=== PATIENT | female | born 1950 | race Caucasian/White ===

== ENCOUNTER 2021-08-22 21:43 | Outpatient (CLI) | payer MEDICARE | END 2021-08-22 21:44 | disposition critical access hospital (66) | LOC: EMS 21:43 | DX: R53.1 Weakness (principal); R47.81 Slurred speech; R51.9 Headache, unspecified; R29.810 Facial weakness | CPT/HCPCS: A0425; A0427 ==

== ENCOUNTER 2021-08-22 22:02 | Emergency (ER) | payer BC, MEDICARE, OTHER ==
[2021-08-22] MEDS ORDERED: SODIUM CHLORIDE 0.9% 1,000 ML IV STA (22:11)
[2021-08-22 22:26] LABS: BASOPHILS # (AUTO) 0.1 10^3/uL (0.0-0.1); BASOPHILS % (AUTO) 0.6 %; EOSINOPHILS # (AUTO) 0.2 10^3/uL (0.0-0.7); EOSINOPHILS % (AUTO) 2.2 %; HCT - HEMATOCRIT 38.6 % (37.0-47.0); HGB - HEMOGLOBIN 13.3 g/dL (12.0-16.0); LYMPHOCYTES # (AUTO) 3.8 10^3/uL (1.5-3.5); MEAN CORPUSCULAR HGB CONC 34.5 g/dL (32.0-36.0); MEAN CORPUSCULAR VOLUME 86.9 fL (81.0-99.0); MEAN PLATELET VOLUME 9.1 fL (7.9-10.8); MONOCYTES # (AUTO) 0.7 10^3/uL (0.0-1.0); MONOCYTES % (AUTO) 8.1 %; NEUTROPHILS # (AUTO) 4.1 10^3/uL (1.5-6.6); NEUTROPHILS % (AUTO) 45.8 %; PLT - PLATELET COUNT 292 10^3/uL (130-450); RED BLOOD COUNT 4.44 10^6/uL (4.20-5.40); RED CELL DISTRIBUTION WIDTH 12.2 % (12.0-15.0); WHITE BLOOD COUNT 8.9 x10^3/uL (4.8-10.8)
--- NOTE | 2021-08-22 22:35 | CT Report ---
PROCEDURE: HEAD WO INDICATIONS: L sided deficits TECHNIQUE: Noncontrast 4.5 mm thick angled axial sections acquired from the foramen magnum to the vertex. For r adiation dose reduction, the following was used: automated exposure control, adjustment of mA and/or kV according to patient size. COMPARISON: None. FINDINGS: Image quality: Excellent. CSF spaces: Basal cisterns are patent. No extra-axial fluid collections. Ventricles are normal in size and shape. Brain: Increased density noted in the M1 segment of the right middle cerebral artery. No midline chacorta ft. No intracranial masses or hemorrhage. Montes-white matter interface is normal. Skull and face: Calvarium and visualized facial bones are intact, without suspicious lesions. Sinuses: Visualized sinuses and mastoids are clear. IMPRESSION: 1. Increased density in the M1 segment of the right middle cerebral artery highly suspicious for thro mbus. 2. No intracranial hemorrhage. Findings discussed with Dr. Vicente on 08/22/2021 at 1029 hours. Reviewed by: Stacy Drake MD, PhD on 08/22/2021 10:34 PM PDT Approved by: Stacy Drake MD, PhD on 08/22/2021 10:34 PM PDT Station ID: [id number]
[2021-08-22 22:40] LABS: ALBUMIN 4.4 g/dL (3.2-5.5); ALBUMIN/GLOBULIN RATIO 1.6 (1.0-2.2); BILIRUBIN,TOTAL 0.7 mg/dL (0.2-1.0); CALCIUM 9.2 mg/dL (8.5-10.3); CREATININE 0.8 mg/dL (0.4-1.0); POTASSIUM 3.4 mmol/L (3.5-5.0); TOTAL PROTEIN 7.1 g/dL (6.7-8.2)
[2021-08-22] MEDS ORDERED: ALTEPLASE IV STA (23:04)
[2021-08-22] MEDS ORDERED: WATER FOR INJECTION STERILE IV STA (23:04)
[2021-08-22] MEDS ORDERED: ALTEPLASE 100 MG VIAL ONE (23:25)
[2021-08-22 23:38] LABS: INR 1.2 (0.8-1.2); PT - PROTHROMBIN TIME 12.9 secs (9.9-12.6)
[2021-08-22] MEDS ORDERED: IOVERSOL 320 100 ML VIAL IVP ONE (23:52)
[2021-08-23] MEDS ORDERED: IOVERSOL 320 100 ML VIAL IVP ONE (00:25)
--- NOTE | 2021-08-23 00:42 | CT Report ---
PROCEDURE: ANGIO HEAD W/WO INDICATIONS: L sided facial droop CONTRAST: IV CONTRAST: Optiray 320 ml: 80 PO CONTRAST: *NO PO CONTRAST TECHNIQUE: Precontrast 4.5 mm thick angled axial sections acquired from the foramen magnum to the vertex. Afte r the administration of intravenous contrast, 1 mm thick sections acquired through the [place] of [place] is. Postcontrast 4.5 mm thick sections then re-acquired from the foramen magnum to the vertex. 3-di mensional fwnumon-qlcknmzhn-xpxvoftagr (MIP) and/or volume rendering reformats were acquired of the c entral intracranial vasculature. For radiation dose reduction, the following was used: automated ex posure control, adjustment of mA and/or kV according to patient size. COMPARISON: CT head 08/22/2021. FINDINGS: Image quality: Excellent. Anterior circulation: Intracranial internal carotid arteries are normal in size and flow. The flow within the paired anterior cerebral arteries is normal and symmetric. Thrombus noted in the M1 segmen t of the right middle cerebral artery. Normal flow noted in the left middle cerebral artery. The ante rior communicating artery is seen. No aneurysms are seen. Posterior circulation: Visualized portions of the vertebral arteries demonstrate normal caliber, and join to form a normal appearing basilar artery. Flow within the posterior cerebral arteries is norm al and symmetric. No aneurysms are seen. On postcontrast enhancement of the dural sinuses. CSF spaces: Ventricles are normal in size and shape. Basal cisterns are patent. No extra-axial flu id collections. Brain: Loss of montes-white matter differentiation noted in the right insula and the right basal gangl ia. No midline shift. No intracranial bleeds or masses. Montes-white matter interface appears intact. Skull and face: Calvarium and facial bones appear intact, without suspicious lesions. Sinuses: Visualized sinuses and mastoids are clear. IMPRESSION: 1. Thrombus involving the M1 segment of the right middle cerebral artery. 2. Loss of montes-white matter dictation involving the right insula and the right basal ganglia compati ble with early acute infarct. 3. No intracranial hemorrhage. Reviewed by: Stacy Drake MD, PhD on 08/23/2021 12:43 AM PDT Approved by: Stacy Drake MD, PhD on 08/23/2021 12:43 AM PDT Station ID: [id number]
--- NOTE | 2021-08-23 00:46 | CT Report ---
PROCEDURE: ANGIO NECK W INDICATIONS: L sided facial droop, L neck pain CONTRAST: IV CONTRAST: Isovue 370 ml: 80 PO CONTRAST: *NO PO CONTRAST TECHNIQUE: After the administration of intravenous contrast, 1.5 mm axial sections acquired from the aortic arch to the [place] of Fu. Coronal 3-D maximum intensity projection (MIP) and/or volume rendering ref ormats were then performed. For radiation dose reduction, the following was used: automated exposur e control, adjustment of mA and/or kV according to patient size. COMPARISON: None. FINDINGS: Image quality: Excellent. Carotid system: The great vessels demonstrate a conventional anatomy as they arise from the aortic a rch. The origins of the common carotid arteries appear patent. The common carotid arteries demonstr ate normal calibers. The right common carotid artery follows a medial course projecting into the prev ertebral space. The bifurcation regions appear normal bilaterally. The internal carotid arteries de monstrate normal caliber and course. Posterior circulation: The origins of the vertebral arteries appear patent. The more superior porti ons of the vertebral arteries demonstrate normal course and caliber. They join to form a normal appe aring basilar artery. Soft tissues: Visualized neck soft tissues demonstrate no suspicious abnormalities. The thyroid is normal in size and there are no incidental findings. Bones: No suspicious bony lesions. Spine degenerative disc disease and facet arthropathy are noted. Visualized cervical spine appears normally aligned. IMPRESSION: No large vessel occlusion, vascular stenosis, vascular dissection or aneurysm. The estimate of stenosis included in the report of the imaging study was calculated using the NASCET method CLINICAL RECOMMENDATION STATEMENTS: In patients <35 years with an ITN detected on CT, MRI, or extrathyroidal ultrasound, the Committee re commends further evaluation with dedicated thyroid ultrasound if the nodule is "e1 cm and has no susp icious imaging features, and if the patient has normal life expectancy. In patients "e35 years with an ITN detected on CT, MRI, or extrathyroidal ultrasound, the Committee r ecommends further evaluation with dedicated thyroid ultrasound if the nodule is "e1.5 cm and has no s uspicious imaging features, and if the patient has normal life expectancy. (ACR, 2014) Reviewed by: Stacy Drake MD, PhD on 08/23/2021 12:47 AM PDT Approved by: Stacy Drake MD, PhD on 08/23/2021 12:47 AM PDT Station ID: [id number]
--- NOTE | 2021-08-23 01:10 | ED Physician Documentation ---
History of Present Illness - Stated complaint Stated Complaint: STROKE - Chief complaint Chief Complaint: Neuro - History obtained from History obtained from: Patient, Family, EMS - Additonal information Additional information: The patient is brought to the emergency department by EMS for chief complaint of strokelike symptoms. According to the , the patient been sitting watching TV when the got up to go the bathroom. He states that very shortly thereafter, the patient came to the doorway of the bathroom and he noted that she seemed to have drooping of her right face. The patient's left arm also seemed to be just hanging, and she was having difficulty with ambulation, secondary to left leg weakness. Per medics, the patient has showed no evidence of improvement in route. Patient states she does not feel any better. She complains of a frontal headache. No nausea or abdominal pain. No chest pain or shortness of breath. The patient has a history of atrial fibrillation which is failed 3 ablations. She states she thinks she is on an anticoagulant for this but cannot remember what. has brought the patient's meds and no anticoagulant is found to be among them. No other complaints at this time. Review of Systems Ten Systems: 10 systems reviewed and negative Constitutional: reports: Reviewed and negative Eyes: reports: Reviewed and negative Ears: reports: Reviewed and negative Nose: reports: Reviewed and negative Throat: reports: Reviewed and negative Cardiac: reports: Reviewed and negative Respiratory: reports: Reviewed and negative GI: reports: Reviewed and negative : reports: Reviewed and negative Skin: reports: Reviewed and negative Musculoskeletal: reports: Reviewed and negative Neurologic: reports: Focal weakness, Headache Psychiatric: reports: Reviewed and negative Endocrine: reports: Reviewed and negative Immunocompromised: reports: Reviewed and negative PD PAST MEDICAL HISTORY - Past Medical History Past Medical History: Yes Cardiovascular: Atrial fibrillation GI: GERD : Frequency - Past Surgical History Past Surgical History: Yes 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 Cardiovascular: Other - Present Medications Home Medications: Ambulatory Orders Medication Instructions Recorded Confirmed Ajanta 10 mg PO DAILY 08/22/21 Atorvastatin [Lipitor] 20 mg PO DAILY 08/22/21 08/22/21 Metoprolol Succinate [Kapspargo 100 mg PO DAILY 08/22/21 08/22/21 Sprinkle] Omeprazole [PriLOSEC] 20 mg PO DAILY 08/22/21 08/22/21 - Allergies Allergies/Adverse Reactions: Allergies Allergy/AdvReac Type Severity Reaction Status Date / Time No Known Drug Allergies Allergy Verified 08/22/21 22:56 - Social History Does the pt smoke?: No Smoking Status: Never smoker Does the pt drink ETOH?: No Does the pt have substance abuse?: No - Immunizations Immunizations are current?: Yes PD ED PE NORMAL - Vitals Vital signs reviewed: Yes - General General: No acute distress, Well developed/nourished, Other (The patient is awake and answers questions appropriately, Though responses are sometimes slowed.) - HEENT HEENT: Atraumatic, PERRL, EOMI, Moist mucous membranes - Neck Neck: Supple, no meningeal sign - Cardiac Cardiac: No murmur, Strong equal pulses, Other (Tachycardic, irregular rhythm) - Respiratory Respiratory: No respiratory distress, Clear bilaterally - Abdomen Abdomen: Soft, Non tender, Non distended - Derm Derm: Normal color, Warm and dry, No rash - Extremities Extremities: No deformity, No edema, No calf tenderness / cord - Neuro Neuro: Other (Unable to get an accurate NIH stroke scale score, secondary to inability of patient to complete certain aspects of the exam.) - Psych Psych: Normal mood, Normal affect PD ED PE EXPANDED - Free text exam Free text exam: Neurologic exam continued: Right-sided facial droopWith rightward gaze deviation. 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 No movement whatsoever of left arm. Left arm is insensate. Sensation intact in left leg to sharp and soft touch. The patient is able to weakly lift the left leg off of the bed and is able to perform a small amount of the imrj-ew-vaxo test, and the weakness prevents full movement. She is able to lift her leg off the bed for approximately 1 second, then the leg drifts down to the bed rapidly. She is able to perform ceoyce-bj-bqya well with the right hand. She can read the list of words and name objects in pictures and describe the action picture during the NIH stroke scale testing, but her ability to do these things is somewhat limited by her hemianopsia and resultant visual deficits. Her speech is slightly slurred but she is able to articulate fairly well nonetheless and there is no aphasia. Results - Vitals Vitals: Oxygen O2 Source Room air - EKG (time done) 2228 Rate: Rate (enter#) (139) Rhythm: Atrial fibrillation [place]: Normal Intervals: Normal MS QRS: Normal (Occasional PVCs) Ischemia: Non specific changes Compare to prior EKG: Old EKG unavailable Computer interpretation: Disagree with computer (ATrial fibrillation with RVR, not ST) - Labs Labs: Laboratory Tests 08/22/21 08/22/21 08/22/21 22:20 22:20 22:20 WBC 8.9 RBC 4.44 Hgb 13.3 Hct 38.6 MCV 86.9 MCH 30.0 MCHC 34.5 RDW 12.2 Plt Count 292 MPV 9.1 Neut # (Auto) 4.1 Lymph # (Auto) 3.8 H [place] # (Auto) 0.7 Eos # (Auto) 0.2 Baso # (Auto) 0.1 Absolute Nucleated RBC 0.00 Nucleated RBC % 0.0 PT 12.9 H INR 1.2 Sodium 135 Potassium 3.4 L Chloride 98 L Carbon Dioxide 24 Anion Gap 13.0 BUN 19 Creatinine 0.8 Estimated GFR (MDRD) 71 L Glucose 118 H Calcium 9.2 Total Bilirubin 0.7 AST 24 ALT 32 Alkaline Phosphatase 57 Total Protein 7.1 Albumin 4.4 Globulin 2.7 Albumin/Globulin Ratio 1.6 Lipase 34 Nasal Adenovirus (PCR) Nasal B. parapertussis DNA (PCR) Nasal Coronavir 229E PCR Nasal Coronavir HKU1 PCR Nasal Coronavir NL63 PCR Nasal Coronavir OC43 PCR Nasal Enterovir/Rhinovir PCR Nasal Influenza B PCR Nasal Influenza A PCR Nasal Parainfluen 1 PCR Nasal Parainfluen 2 PCR Nasal Parainfluen 3 PCR Nasal Parainfluen 4 PCR Nasal RSV (PCR) Nasal B.pertussis DNA PCR Nasal C.pneumoniae (PCR) Danyel Human Metapneumo PCR Nasal M.pneumoniae (PCR) Nasal SARS-CoV-2 (PCR) 08/22/21 22:34 WBC RBC Hgb Hct MCV MCH MCHC RDW Plt Count MPV Neut # (Auto) Lymph # (Auto) [place] # (Auto) Eos # (Auto) Baso # (Auto) Absolute Nucleated RBC Nucleated RBC % PT INR Sodium Potassium Chloride Carbon Dioxide Anion Gap BUN Creatinine Estimated GFR (MDRD) Glucose Calcium Total Bilirubin AST ALT Alkaline Phosphatase Total Protein Albumin Globulin Albumin/Globulin Ratio Lipase Nasal Adenovirus (PCR) NOT DETECTED Nasal B. parapertussis DNA (PCR) NOT DETECTED Nasal Coronavir 229E PCR NOT DETECTED Nasal Coronavir HKU1 PCR NOT DETECTED Nasal Coronavir NL63 PCR NOT DETECTED Nasal Coronavir OC43 PCR NOT DETECTED Nasal Enterovir/Rhinovir PCR NOT DETECTED Nasal Influenza B PCR NOT DETECTED Nasal Influenza A PCR NOT DETECTED Nasal Parainfluen 1 PCR NOT DETECTED Nasal Parainfluen 2 PCR NOT DETECTED Nasal Parainfluen 3 PCR NOT DETECTED Nasal Parainfluen 4 PCR NOT DETECTED Nasal RSV (PCR) NOT DETECTED Nasal B.pertussis DNA PCR NOT DETECTED Nasal C.pneumoniae (PCR) NOT DETECTED Danyel Human Metapneumo PCR NOT DETECTED Nasal M.pneumoniae (PCR) NOT DETECTED Nasal SARS-CoV-2 (PCR) NOT DETECTED - Rads (name of study) head CT Radiology: Final report received, EMP read indepedently, See rad report (MCA distribution stroke.) CTA head/neck Radiology: Final report received, EMP read indepedently, See rad report (Thrombus M1 segment of MCA (R) with associated acute infarct.) PD MEDICAL DECISION MAKING - ED course Complexity details: reviewed results, re-evaluated patient, considered differential, d/w patient, d/w family, d/w law firm consultant ED course: The patient was immediately sent for CT scan of the head on arrival, which showed likely right MCA distribution Acute CVA. I felt the patient would likely be a good candidate for tPA with the exception of the possibility of being on an anticoagulant for her chronic atrial fibrillation. The and brought the patient's meds in but there is no anticoagulant among them. He could not get onto her chart online. I had consulted telestroke physician Dr. Simmons, who did interview the patient and ultimately, it was determined that the patient is actually on aspirin. He felt the patient was a good candidate for TPA and so this was initiated. There were no complications during the administration of tPA. The pt's blood pressure was somewhat labile, but was low-normal enough times that I did not feel she should be started on antihypertensives. Additionally, despite the pt being in atrial fibrillation with RVR, I did not start the pt on Cardizem or metoprolol over blood pressure concerns, as well. The pt was accepted for transfer by Dr. Lombardi at [facility] (neurology/stroke), but I was asked to speak with the emergency physician Dr. Mayen, which I did. The pt was transferred by airlift. - Critical Care Time(min): 75 Comments: Critical care time was necessary, due to high probability of imminent decline and permanent, severe neurologic morbidity/time-sensitive neurologic emergency, secondary to acute severe CVA requiring thrombolytics. Time Includes: Direct patient care, Review records, Reassess patient, Document care, Coordinate care, Medical consult, Family consult for tx dec, See progress note Data interpretation: Labs (Also, CT/CTA), Pulse ox, Cardiac output, See progress note Departure - Departure Disposition: 02 Transfer Acute Care Hosp Discharge Date/Time: 08/23/21 01:54
[2021-08-23 01:21] LABS: B. PARAPERTUSSIS- RESP PCR PAN NOT DETECTED; B. PERTUSSIS- RESP PCR PANEL NOT DETECTED; C. PNEUMONIAE- RESP PCR PANEL NOT DETECTED; CORONAVIRUS 229E-RESP PCR NOT DETECTED; CORONAVIRUS HKU1-RESP PCR NOT DETECTED; CORONAVIRUS NL63-RESP PCR NOT DETECTED; CORONAVIRUS OC43-RESP PCR NOT DETECTED; HUMAN METAPNEUMOVIRUS NOT DETECTED; INFLUENZA A- RESP PCR PANEL NOT DETECTED; INFLUENZA B - RESP PCR PANEL NOT DETECTED; M. PNEUMONIAE- RESP PCR PANEL NOT DETECTED; PARAINFLUENZA VIRUS 1 NOT DETECTED; PARAINFLUENZA VIRUS 2 NOT DETECTED; PARAINFLUENZA VIRUS 3 NOT DETECTED; PARAINFLUENZA VIRUS 4 NOT DETECTED; RHINOVIRUS/ENTEROVIRUS NOT DETECTED; RSV- RESP PCR PANEL NOT DETECTED; SARS-CoV-2 -RESP PCR PANEL NOT DETECTED
[2021-08-23 01:44] VITALS: BP 129/83
== END 2021-08-23 01:54 | disposition short-term general hospital (02) ==
LOC: ED 22:02
DX: I63.411 Cerebral infarction due to embolism of right middle cerebral artery (principal); I48.91 Unspecified atrial fibrillation; Z79.01 Long term (current) use of anticoagulants; Z20.822 Contact with and (suspected) exposure to COVID-19
CPT/HCPCS: 36415; 37195; 70450; 70496; 70498; 80053; 83690; 85025; 85610; 87631; 99285; 99291; 99292; J2997; Q9967; 0202U

== ENCOUNTER 2022-02-12 14:16 | Outpatient (CLI) | payer MEDICARE | END 2022-02-12 14:17 | disposition critical access hospital (66) | LOC: EMS 14:16 | DX: R56.9 Unspecified convulsions (principal); R25.2 Cramp and spasm; I48.91 Unspecified atrial fibrillation | CPT/HCPCS: A0425; A0427 ==

== ENCOUNTER 2022-02-12 14:39 | Emergency (ER) | payer MEDICARE ==
--- NOTE | 2022-02-12 14:42 | ED Physician Documentation ---
PD HPI SEIZURE - Stated complaint Stated Complaint: SZ - History obtained from History obtained from: Patient - History of Present Illness Timing - onset: How many minutes ago (first seizure about 30 minutes [employer], onset while seated in chair. No fall/injury. lasted about a minute then stopped. EMS arrived with patient post ictal. She roused mostly alert and then had second seizure, self limited for about 1 minute. Given Versed by EMS, "just as the seizure was stopping".), Today Witnessed: Witnessed Number of seizures: Multiple (2), Recovered between seizure Description of seizure activity: Generalized Injury during seizure: None Associated symptoms: None. No: Headache, Chest pain, Dyspnea, Nausea / vomiting History of seizures: First seizure Contributing factors: Other. No: Changed meds, Head injury, Fever Treatment [employer]: Other (Versed after 2nd seizure stopped.) Similar symptoms before: Has not had sx before Recently seen: Not recently seen Review of Systems Unable to obtain: AMS, Other (info from ) Constitutional: denies: Fever, Chills Nose: denies: Congestion Cardiac: denies: Chest pain / pressure Respiratory: denies: Cough GI: denies: Abdominal Pain, Vomiting, Diarrhea Neurologic: reports: Seizure. denies: Headache Psychiatric: denies: Insomnia Immunocompromised: denies: Immunocompromised PD PAST MEDICAL HISTORY - Past Medical History Cardiovascular: Atrial fibrillation Respiratory: None Neuro: CVA, Other (no prior seizures. 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 Cardiovascular: Other - Present Medications Home Medications: Ambulatory Orders Medication Instructions Recorded Confirmed Ajanta 10 mg PO DAILY 08/22/21 Atorvastatin [Lipitor] 20 mg PO DAILY 08/22/21 08/22/21 Metoprolol Succinate [Kapspargo 100 mg PO DAILY 08/22/21 08/22/21 Sprinkle] Omeprazole [PriLOSEC] 20 mg PO DAILY 08/22/21 08/22/21 Levetiracetam [Keppra] 500 mg PO BID 30 Days #60 tablet 02/12/22 - Allergies Allergies/Adverse Reactions: Allergies Allergy/AdvReac Type Severity Reaction Status Date / Time No Known Drug Allergies Allergy Verified 02/12/22 15:00 - Living Situation Living Situation: reports: With spouse/s.o. Living Arrangement: reports: At home - Social History Does the pt smoke?: No Smoking Status: Never smoker Does the pt drink ETOH?: No Does the pt have substance abuse?: No - Family History Family history: reports: Non contributory - Immunizations Immunizations are current?: Yes PD ED PE NORMAL - Vitals Vital signs reviewed: Yes - General General: Other (arives somnolent, with some partial eye opening to sternal rub. Adequate apparent ventilation. Sats okay. ) - HEENT HEENT: Atraumatic, Moist mucous membranes, Pharynx benign - Neck Neck: Supple, no meningeal sign, No adenopathy, No bruit - Cardiac Cardiac: No murmur. No: RRR (irregular and tachycardic, ranging 125-145 c/w atrial fib with RVR. ) - Respiratory Respiratory: No respiratory distress, Clear bilaterally - Abdomen Abdomen: Normal bowel sounds, Soft, Non tender, Non distended - Derm Derm: Normal color, Warm and dry - Extremities Extremities: No tenderness to palpate, No edema, No calf tenderness / cord - Neuro Eye Opening: To Pain Motor: Localizes to Pain Verbal: Inappropriate (initially presents post-ictal with just some response to stimuli and incomprehensible speech. Rests.) GCS Score: 10 Results - Vitals Vitals: Vital Signs - 24 hr 02/12/22 02/12/22 02/12/22 14:57 15:28 15:39 Temperature 36.7 C Heart Rate 149 H 108 H 100 Respiratory 19 17 16 Rate Blood Pressure 145/103 H 121/101 H 123/93 H O2 Saturation 93 96 96 02/12/22 02/12/22 02/12/22 16:20 16:25 16:30 Temperature Heart Rate 114 H 113 H 100 Respiratory Rate Blood Pressure 120/83 H 111/75 118/78 O2 Saturation 02/12/22 02/12/22 02/12/22 16:35 16:50 17:05 Temperature Heart Rate 96 92 113 H Respiratory 19 Rate Blood Pressure 114/85 H 124/78 117/76 O2 Saturation 97 02/12/22 02/12/22 02/12/22 17:20 18:00 18:30 Temperature Heart Rate 104 H 96 89 Respiratory 16 16 Rate Blood Pressure 130/76 122/75 124/75 O2 Saturation 100 100 09/06/22 09/06/22 09/06/22 19:30 20:00 20:30 Temperature 36.7 C Heart Rate 93 100 99 Respiratory 16 12 17 Rate Blood Pressure 139/94 H 124/99 H 134/81 H O2 Saturation 94 93 94 Oxygen O2 Source Room air Oxygen Flow Rate 2 - Labs Labs: Laboratory Tests 02/12/22 02/12/22 02/12/22 13:34 14:45 14:45 WBC 14.3 H RBC 4.76 Hgb 14.3 Hct 44.2 MCV 92.9 MCH 30.0 MCHC 32.4 RDW 11.8 L Plt Count 347 MPV 9.6 Neut # (Auto) 5.2 Lymph # (Auto) 7.5 H [place] # (Auto) 1.1 H Eos # (Auto) 0.1 Baso # (Auto) 0.1 Absolute Nucleated RBC 0.03 Band Neuts % (Manual) Not Reportable Abnorm Lymph % (Manual) Not Reportable Nucleated RBC % 0.2 Neutrophils # (Manual) Not Reportable Lymphocytes # (Manual) Not Reportable Monocytes # (Manual) Not Reportable Eosinophils # (Manual) Not Reportable Basophils # (Manual) Not Reportable Differential Comment MANUAL=AUTO DIFF Manual Slide Review Indicated Platelet Estimate NORMAL (130-450,000) Platelet Morphology NORMAL APPEARANCE RBC Morph Micro Appear NORMAL APPEARANCE PT INR Sodium 138 Potassium 3.3 L Chloride 101 Carbon Dioxide 13 L Anion Gap 24.0 H BUN 18 Creatinine 0.8 Estimated GFR (MDRD) 70 L Glucose 146 H Lactic Acid 3.7 H* Calcium 9.4 Magnesium 2.6 Total Bilirubin 0.6 AST 36 ALT 30 Alkaline Phosphatase 51 Total Protein 7.6 Albumin 4.9 Globulin 2.7 Albumin/Globulin Ratio 1.8 Lipase 43 02/12/22 02/12/22 14:45 14:45 WBC RBC Hgb Hct MCV MCH MCHC RDW Plt Count MPV Neut # (Auto) Lymph # (Auto) [place] # (Auto) Eos # (Auto) Baso # (Auto) Absolute Nucleated RBC Band Neuts % (Manual) Abnorm Lymph % (Manual) Nucleated RBC % Neutrophils # (Manual) Lymphocytes # (Manual) Monocytes # (Manual) Eosinophils # (Manual) Basophils # (Manual) Differential Comment Manual Slide Review Platelet Estimate Platelet Morphology RBC Morph Micro Appear PT 14.2 H INR 1.3 H Sodium Potassium Chloride Carbon Dioxide Anion Gap BUN Creatinine Estimated GFR (MDRD) Glucose Lactic Acid > 10.0 H* Calcium Magnesium Total Bilirubin AST ALT Alkaline Phosphatase Total Protein Albumin Globulin Albumin/Globulin Ratio Lipase - Rads (name of study) head CT Radiology: Prelim report reviewed (prior CVA. No acute bleeding nor edema. ), See rad report PD MEDICAL DECISION MAKING - ED course Complexity details: reviewed results, re-evaluated patient (she slowly improves to baseline level of conversation/interaction. Having some increase of her chronic back pain post seizure. Given pain meds. Rapid atril fib slowed to about 100 with meds and time. ), considered differential (chronic atrial fib. New onset seizure. On DOAC. will get CT head to eval for bleed. Labs for metabolic assessment. ), d/w patient, d/w senior staff consultant (talked with her Neurologist Violeta Eaton, who suggested Rx Keppra 500 mg bid. Her office will contact the patient tomorrow about soon follow up. ) ED course: updated and patient on test results and then waited for Neuroloist to call back. Given Keppra and some pain meds for low bakc HR is minimally tachycardic and still fib. Patient should be able to be discharged with . Departure - Departure Disposition: 01 Home, Self Care Clinical Impression: Generalized seizure, Atrial fibrillation with rapid ventricular response, History of CVA with residual deficit, Anticoagulant long-term use, Chronic low back pain Condition: Stable Record reviewed to determine appropriate education?: Yes Instructions: ED Seizure New Onset Unk Cause Follow-Up: VIOLETA EATON MD [Physician No Access] - Prescriptions: Levetiracetam [Keppra] 500 mg PO BID 30 Days #60 tablet Comments: Dr. Eaton would like you to start on an antiseizure medicine called Keppra (levetiracetam). The starting dose is 500 mg twice a day. I sent a prescription for this to [facility] in [place] as I do not have [facility] in our database to be able to send it there. This will be an initial prescription however until you are able to see Dr. Eaton in the office and she can write for further prescriptions through your usual provider. Continue with your current usual medications. Use Tylenol every 4-6 hours regularly for the next few days to help with pains. Return if recurrent seizures in the short-term.
[2022-02-12] MEDS ORDERED: METOPROLOL 5 MG/5 ML VIAL IVP STA ×2 (14:55→16:07)
[2022-02-12 15:04] LABS: BASOPHILS # (AUTO) 0.1 10^3/uL (0.0-0.1); BASOPHILS % (AUTO) 0.5 %; EOSINOPHILS # (AUTO) 0.1 10^3/uL (0.0-0.7); EOSINOPHILS % (AUTO) 0.8 %; HCT - HEMATOCRIT 44.2 % (37.0-47.0); HGB - HEMOGLOBIN 14.3 g/dL (12.0-16.0); LYMPHOCYTES # (AUTO) 7.5 10^3/uL (1.5-3.5); LYMPHOCYTES % (AUTO) 52.9 %; MEAN CORPUSCULAR HGB CONC 32.4 g/dL (32.0-36.0); MEAN CORPUSCULAR VOLUME 92.9 fL (81.0-99.0); MEAN PLATELET VOLUME 9.6 fL (7.9-10.8); MONOCYTES # (AUTO) 1.1 10^3/uL (0.0-1.0); MONOCYTES % (AUTO) 7.7 %; NEUTROPHILS # (AUTO) 5.2 10^3/uL (1.5-6.6); NEUTROPHILS % (AUTO) 36.2 %; NRBC ABSOLUTE COUNT (AUTO) 0.03 x10^3/uL; NUCLEATED RED BLOOD CELLS AUTO 0.2 /100WBC; PLT - PLATELET COUNT 347 10^3/uL (130-450); RED BLOOD COUNT 4.76 10^6/uL (4.20-5.40); RED CELL DISTRIBUTION WIDTH 11.8 % (12.0-15.0); WHITE BLOOD COUNT 14.3 x10^3/uL (4.8-10.8)
[2022-02-12 15:08] LABS: INR 1.3 (0.8-1.2); PT - PROTHROMBIN TIME 14.2 secs (9.9-12.6)
[2022-02-12 15:23] LABS: SLIDE REVIEW? Indicated
--- NOTE | 2022-02-12 15:24 | CT Report ---
PROCEDURE: HEAD WO INDICATIONS: seizure new onset; recent CVA TECHNIQUE: Noncontrast 4.5 mm thick angled axial sections acquired from the foramen magnum to the vertex. For r adiation dose reduction, the following was used: automated exposure control, adjustment of mA and/or kV according to patient size. COMPARISON: CT head 08/23/2019 FINDINGS: Image quality: Excellent. The ventricular system and cortical sulci demonstrate atrophy, consistent for patient's stated age. There are areas of hypodensity in the periventricular and subcortical white matter. Encephalomalacia is present in the left right M1 distribution consistent with old ischemia. There is no acute intra o r extra-axial fluid collection. No acute hemorrhage, mass lesion or midline shift. Brainstem is unr emarkable. Globes are symmetrical. Sinuses are aerated. Osseous structures are intact. IMPRESSION: 1. No acute intracranial process. 2. Mild atrophy and chronic microvascular ischemic changes. Reviewed by: Ana Ferguson MD on 02/12/2022 3:23 PM PDT Approved by: Ana Ferguson MD on 02/12/2022 3:23 PM PDT Station ID: [id number]
[2022-02-12 15:46] LABS: RBC MORPHOLOGY (MULTIPLE) NORMAL APPEARANCE (NORMAL)
[2022-02-12 15:47] LABS: DIFFERENTIAL COMMENT MANUAL=AUTO DIFF; PLATELET ESTIMATE, MANUAL NORMAL (130-450,000) (NORMAL); PLATELET MORPHOLOGY NORMAL APPEARANCE (NORMAL)
[2022-02-12 15:58] LABS: ALBUMIN 4.9 g/dL (3.2-5.5); ALBUMIN/GLOBULIN RATIO 1.8 (1.0-2.2); BILIRUBIN,TOTAL 0.6 mg/dL (0.2-1.0); CALCIUM 9.4 mg/dL (8.5-10.3); CREATININE 0.8 mg/dL (0.4-1.0); MAGNESIUM 2.6 mg/dL (1.7-2.8); POTASSIUM 3.3 mmol/L (3.5-5.0); TOTAL PROTEIN 7.6 g/dL (6.7-8.2)
[2022-02-12] MEDS ORDERED: SODIUM CHLORIDE 0.9% 1,000 ML IV STA (16:06)
[2022-02-12] MEDS ORDERED: levETIRAcetam INJ 500 MG in SODIUM CHLORIDE 0.9% 100ML 100 ML IV STA (16:58)
[2022-02-12] MEDS ORDERED: HYDROmorphone 0.5 MG/0.5 ML SYRINGE IVP STA (17:11)
[2022-02-12] MEDS ORDERED: KETOROLAC 15 MG/ML VIAL IVP STA (17:11)
[2022-02-12] MEDS ORDERED: HYDROmorphone 1 MG/ML CARPUJECT IVP STA (20:50)
[2022-02-12] MEDS ORDERED: oxyCODONE 5 MG TABLET PO STA (22:21)
--- NOTE | 2022-02-12 22:29 | XRAY Report ---
PROCEDURE: Hip w/Pelvis 2-3V LT INDICATIONS: fall, hip pain TECHNIQUE: AP pelvis with lateral view of the left hip. COMPARISON: None. FINDINGS: Bones: No displaced fractures or dislocations. Pelvic ring appears intact. No suspicious bony lesi ons. Soft tissues: The visualized bowel gas pattern is normal. No suspicious soft tissue calcifications. IMPRESSION: 1. No displaced fracture or dislocation. 2. If clinical concern persists, further evaluation may be obtained with CT. Reviewed by: Stephon Harvey MD on 02/12/2022 10:27 PM PDT Approved by: Stephon Harvey MD on 02/12/2022 10:27 PM PDT Station ID: [id number]
--- NOTE | 2022-02-12 22:33 | XRAY Report ---
PROCEDURE: Lumbar Spine 2 View INDICATIONS: fall, back pain TECHNIQUE: 2 views of the lumbar spine were acquired. COMPARISON: None. FINDINGS: Bones: 5 pga-bhp-ljwadqw vertebrae are present. There is mild retrolisthesis at L2-L3 measuring yuliya roximately 0.4 cm. Minimal retrolisthesis also demonstrated at L3-L4. There is a mild superior endpla te compression deformity of the T12 vertebral body of indeterminate acuity. There is associated mild loss of height of approximately 20-25%. No retropulsed fragments in the spinal canal. There is multilevel disc space narrowing including mild to moderate narrowing at L2-L3. Facet arthrop athy is also demonstrated in the lower lumbar spine including mild to moderate degeneration at L5-S1. Soft tissues: Overlying bowel gas pattern is normal. No suspicious soft tissue calcifications. IMPRESSION: 1. Mild superior endplate compression deformity of the T12 vertebral body of indeterminate acuity. 2. Mild retrolisthesis at L2-L3 and L3-L4. 3. Multilevel degenerative disc disease and facet arthropathy in the lower lumbar spine. Reviewed by: Stephon Harvey MD on 02/12/2022 10:32 PM PDT Approved by: Stephon Harvey MD on 02/12/2022 10:32 PM PDT Station ID: [id number]
[2022-02-12] MEDS ORDERED: ONDANSETRON 4 MG/2 ML VIAL IVP STA (22:57)
[2022-02-12] MEDS ORDERED: SODIUM CHLORIDE 0.9% 500 ML IV STA (23:04)
[2022-02-12 23:37] VITALS: BP 123/78
--- NOTE | 2022-02-12 23:43 | ED Physician Documentation ---
ED Addendum - Addendum Addendum: After Dr. Del Valle had left at the end of his shift, the patient and her family member were complaining of back and left hip pain. I went and evaluated the patient. She did have mild low lumbar tenderness, mainly paraspinal spasm. Full range of motion of the left hip, internal and external rotation without significant pain. X-rays were ordered. No acute findings on lumbar spine x- ray, does have degeneration, T12 compression fracture, does not appear new. She is not tender at this site. Pain well controlled here. She did have emesis after pain medication and this resolved with Zofran. Likely spasm from the seizure. We will prescribe pain medication for home as well. Patient and family are both requesting to go home at this time and they feel comfortable going home. Patient and family counseled regarding signs and symptoms for which I believe and urgent re-evaluation would be necessary. Patient with good understanding of and agreement to plan and is comfortable going home at this time This document was made in part using voice recognition software. While efforts are made to proofread this document, sound alike and grammatical errors may occur. Departure - Departure Disposition: Home, Self Care Clinical Impression: Generalized seizure, Atrial fibrillation with rapid ventricular response, History of CVA with residual deficit, Anticoagulant long-term use, Back spasm Chronic low back pain Qualifiers: Back pain laterality: bilateral Sciatica presence: without sciatica Qualified Code(s): M54.50 - Low back pain, unspecified; G89.29 - Other chronic pain Condition: Stable Instructions: ED Seizure New Onset Unk Cause Follow-Up: BERNA EATON MD [Physician No Access] - Prescriptions: Levetiracetam [Keppra] 500 mg PO BID 30 Days #60 tablet Oxycodone HCl [Roxicodone] 2.5 - 5 mg PO Q6H PRN #10 tablet PRN Reason: Pain Ondansetron Odt [Zofran] 4 mg TL Q6H PRN #10 tablet PRN Reason: Nausea / Vomiting Comments: Dr. Eaton would like you to start on an antiseizure medicine called Keppra (levetiracetam). The starting dose is 500 mg twice a day. I sent a prescription for this to [facility] in [place] as I do not have [facility] in our database to be able to send it there. This will be an initial prescription however until you are able to see Dr. Eaton in the office and she can write for further prescriptions through your usual provider. Continue with your current usual medications. Use Tylenol every 4-6 hours regularly for the next few days to help with pains. Return if recurrent seizures in the short-term. I am prescribing a short course of narcotic pain medication for you. These are potentially dangerous and addictive medications that should be used carefully. These medications may constipate you. Take an stem-kcc-plgbyfy stool softener (docusate) twice daily with plenty of water while taking these medications. If you go 24 hours without a bowel movement, take tcdz-zea-rzgveob miralax, per package instructions. Do not drink or drive while taking these medications. If you received narcotic or sedating medications while in the emergency department, do not drive for 24 hours. Store this medication in a safe, secure place and out of reach of children. It is a violation of federal law to give or sell this medication to another person or to use in a manner other than prescribed. The ED will not refill narcotic prescriptions, including prescriptions lost or stolen. To dispose of unwanted medications: 1. [facility] at [address] in [place] has a medication drop box. They accept prescription medications (in pill form) Friday through Friday 9:00 a.m. to 5:00 p.m. 2. The [facility] [employer] accepts prescription medications (in pill form only) for disposal year round. Call for more information. 3. Contact the [facility] for the next [facility] sponsored prescription drug collection event. , [phone], or [phone];
== END 2022-02-12 23:52 | disposition home or self-care (01) ==
LOC: EDUNIT# → ED 14:39
DX: G40.89 Other seizures (principal); M54.50 Low back pain, unspecified; G89.29 Other chronic pain; I48.91 Unspecified atrial fibrillation; I48.20 Chronic atrial fibrillation, unspecified; Z79.01 Long term (current) use of anticoagulants
CPT/HCPCS: 36415; 70450; 72100; 73502; 80053; 83605; 83690; 83735; 85025; 85610; 93005; 96365; 96375; 96376; 99283; 99285; A9270; J1170

== ENCOUNTER 2022-07-18 15:17 | Emergency (ER) | payer MEDICARE ==
--- NOTE | 2022-07-18 15:55 | ED Physician Documentation ---
History of Present Illness - Stated complaint Stated Complaint: BLACK STOOL - Chief complaint Chief Complaint: Abd Pain - History obtained from History obtained from: Patient - History of Present Illness Timing: Yesterday Pain level max: 0 Pain level now: 0 - Additonal information Additional information: 72-year-old female presents to the emergency department with 2 days of diarrhea. She states that she drank Pepto-Bismol last night. She states that this morning she had dark black stools. No lightheadedness, chest pain, shortness of breath. She is on Eliquis. She had a normal colonoscopy around reportedly 1 year ago. No fevers. No chills. Mild nausea. No vomiting. She states that she has had intermittent diarrhea for several years, no significant change. Review of Systems Constitutional: denies: Fever, Chills Throat: denies: Sore throat Cardiac: denies: Chest pain / pressure, Palpitations Respiratory: denies: Dyspnea, Cough, Wheezing GI: reports: Diarrhea. denies: Vomiting : denies: Dysuria, Frequency, Hesitancy Skin: denies: Rash Musculoskeletal: denies: Neck pain, Back pain Neurologic: denies: Headache PD PAST MEDICAL HISTORY - Past Medical History Cardiovascular: Atrial fibrillation Respiratory: None Neuro: CVA, Other (no prior seizures. 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 Cardiovascular: Other - Present Medications Home Medications: Ambulatory Orders Medication Instructions Recorded Confirmed Ajanta 10 mg PO DAILY 08/22/21 Atorvastatin [Lipitor] 20 mg PO DAILY 08/22/21 08/22/21 Metoprolol Succinate [Kapspargo 100 mg PO DAILY 08/22/21 08/22/21 Sprinkle] Omeprazole [PriLOSEC] 20 mg PO DAILY 08/22/21 08/22/21 Levetiracetam [Keppra] 500 mg PO BID 30 Days #60 tablet 02/12/22 Ondansetron Odt [Zofran] 4 mg TL Q6H PRN #10 tablet 02/12/22 Oxycodone HCl [Roxicodone] 2.5 - 5 mg PO Q6H PRN #10 tablet 02/12/22 - Allergies Allergies/Adverse Reactions: Allergies Allergy/AdvReac Type Severity Reaction Status Date / Time No Known Drug Allergies Allergy Verified 02/12/22 15:00 - Social History Does the pt smoke?: No Smoking Status: Never smoker Does the pt drink ETOH?: No Does the pt have substance abuse?: No - Immunizations Immunizations are current?: Yes PD ED PE NORMAL - Vitals Vital signs reviewed: Yes - General General: Alert and oriented X 3, No acute distress - HEENT HEENT: PERRL, Moist mucous membranes - Neck Neck: Supple, no meningeal sign - Cardiac Cardiac: RRR, Strong equal pulses - Respiratory Respiratory: No respiratory distress, Clear bilaterally - Abdomen Abdomen: Soft, Non tender, Non distended - Rectal Rectal: Other (Brown stool in the rectal vault. Hemoccult sent) - Derm Derm: Warm and dry - Extremities Extremities: No edema - Neuro Neuro: Alert and oriented X 3 - Psych Psych: Normal mood, Normal affect Results - Vitals Vitals: Vital Signs - 24 hr 07/18/22 15:50 Temperature 36.9 C Heart Rate 93 Respiratory 16 Rate Blood Pressure 135/100 H O2 Saturation 98 Oxygen O2 Source Room air - Labs Labs: Microbiology 07/18/22 16:15 Occult Blood - Final Stool Laboratory Tests 07/18/22 07/18/22 16:00 16:00 WBC 8.3 RBC 4.94 Hgb 14.4 Hct 43.2 MCV 87.4 MCH 29.1 MCHC 33.3 RDW 11.5 L Plt Count 308 MPV 9.2 Neut # (Auto) 4.4 Lymph # (Auto) 2.9 [place] # (Auto) 0.7 Eos # (Auto) 0.2 Baso # (Auto) 0.1 Absolute Nucleated RBC 0.00 Nucleated RBC % 0.0 Sodium 135 Potassium 4.2 Chloride 99 L Carbon Dioxide 25 Anion Gap 11.0 BUN 19 Creatinine 0.5 Estimated GFR (MDRD) 121 Glucose 105 H Calcium 9.7 Total Bilirubin 0.8 AST 31 ALT 48 Alkaline Phosphatase 68 Total Protein 7.2 Albumin 4.2 Globulin 3.0 Albumin/Globulin Ratio 1.4 Lipase 45 PD Medical Decision Making - ED course Complexity details: reviewed results, re-evaluated patient, considered differential, d/w patient ED course: A CBC and a abdominal panel were ordered and are without acute abnormality. No significant anemia. Fecal occult blood testing is negative. Likely that the dark stool is secondary to the Pepto-Bismol. Abdomen is soft, nontender nondistended on serial exam. We will have her follow-up with her doctor for further care. We will continue supportive care. Patient counseled regarding signs and symptoms for which I believe and urgent re-evaluation would be necessary. Patient with good understanding of and agreement to plan and is comfortable going home at this time This document was made in part using voice recognition software. While efforts are made to proofread this document, sound alike and grammatical errors may occur. Departure - Departure Disposition: 01 Home, Self Care Clinical Impression: Diarrhea Qualifiers: Diarrhea type: unspecified type Qualified Code(s): R19.7 - Diarrhea, unspecified Condition: Good Instructions: ED Diet Vomiting Diarrhea Follow-Up: CHERELLE ALEXANDRA I [Primary Care Provider] - Within 1 week Comments: Your blood counts and lab work are normal today. Your testing for blood in your stool is also negative today. This is likely secondary to the Pepto-Bismol. Please follow-up with your doctor as needed for further care. Please return if you worsen.
[2022-07-18 16:04] LABS: BASOPHILS # (AUTO) 0.1 10^3/uL (0.0-0.1); BASOPHILS % (AUTO) 0.7 %; EOSINOPHILS # (AUTO) 0.2 10^3/uL (0.0-0.7); EOSINOPHILS % (AUTO) 2.2 %; HCT - HEMATOCRIT 43.2 % (37.0-47.0); HGB - HEMOGLOBIN 14.4 g/dL (12.0-16.0); LYMPHOCYTES # (AUTO) 2.9 10^3/uL (1.5-3.5); LYMPHOCYTES % (AUTO) 34.8 %; MEAN CORPUSCULAR HEMOGLOBIN 29.1 pg (27.0-31.0); MEAN CORPUSCULAR HGB CONC 33.3 g/dL (32.0-36.0); MEAN CORPUSCULAR VOLUME 87.4 fL (81.0-99.0); MEAN PLATELET VOLUME 9.2 fL (7.9-10.8); MONOCYTES # (AUTO) 0.7 10^3/uL (0.0-1.0); MONOCYTES % (AUTO) 8.4 %; NEUTROPHILS # (AUTO) 4.4 10^3/uL (1.5-6.6); NEUTROPHILS % (AUTO) 53.7 %; PLT - PLATELET COUNT 308 10^3/uL (130-450); RED BLOOD COUNT 4.94 10^6/uL (4.20-5.40); RED CELL DISTRIBUTION WIDTH 11.5 % (12.0-15.0); WHITE BLOOD COUNT 8.3 x10^3/uL (4.8-10.8)
[2022-07-18 16:18] LABS: ALBUMIN 4.2 g/dL (3.2-5.5); ALBUMIN/GLOBULIN RATIO 1.4 (1.0-2.2); BILIRUBIN,TOTAL 0.8 mg/dL (0.2-1.0); CALCIUM 9.7 mg/dL (8.5-10.3); CREATININE 0.5 mg/dL (0.4-1.0); POTASSIUM 4.2 mmol/L (3.5-5.0); TOTAL PROTEIN 7.2 g/dL (6.7-8.2)
[2022-07-18 16:52] VITALS: BP 126/84
== END 2022-07-18 16:51 | disposition home or self-care (01) ==
LOC: ED 15:17
DX: R19.7 Diarrhea, unspecified (principal); I48.91 Unspecified atrial fibrillation; Z79.01 Long term (current) use of anticoagulants
CPT/HCPCS: 36415; 80053; 82272; 83690; 85025; 99283

== ENCOUNTER 2022-10-16 12:47 | Outpatient (CLI) | payer MEDICARE | END 2022-10-16 23:59 | disposition critical access hospital (66) | LOC: EMS 12:47 | DX: R56.9 Unspecified convulsions (principal); R03.0 Elevated blood-pressure reading, without diagnosis of hypertension; R00.0 Tachycardia, unspecified | CPT/HCPCS: A0425; A0427 ==

== ENCOUNTER 2022-10-16 13:11 | Emergency (ER) | payer MEDICARE ==
[2022-10-16] MEDS ORDERED: levETIRAcetam 500 MG/5 ML VIAL IVP STA (13:24)
[2022-10-16] MEDS ORDERED: METOPROLOL 5 MG/5 ML VIAL IVP STA ×2 (13:24→13:48)
[2022-10-16] MEDS ORDERED: SODIUM CHLORIDE 0.9% 1,000 ML IV STA (13:25)
--- NOTE | 2022-10-16 13:26 | ED Physician Documentation ---
PD HPI SEIZURE - Stated complaint Stated Complaint: STATUS SZ - Chief complaint Chief Complaint: Neuro - History obtained from History obtained from: Patient, Family, EMS - History of Present Illness Timing - onset: Today Witnessed: Witnessed Number of seizures: Multiple (patients husbadn called EMS due to patient having 2 seizures at home, lasting minute or so, with awakening between. EMS reports patient had 3-4 seizures enroute, brief without awakening between. Stopped with Versed 2.5 mg IV. Patient just awakening on arrival to ER.) Description of seizure activity: Generalized Injury during seizure: None Associated symptoms: Other (EMS noted the patient to be in rapid atrial fib approx 200.). No: Headache, Dyspnea, Nausea / vomiting History of seizures: Known seizure disorder (has had just single seizure episode months ago. Seen by Neurologist and is on Keppra. Has been doing okay without recent URI, vomiting, etc. states the patient reluctantly eats and drinks fluids.) Contributing factors: No: Off meds, Out of meds, Changed meds, Fever Similar symptoms before: Diagnosis ( states pt with one prior seizure. Presumed sequela of CVA. Has history of atrial fib as wel, usually controleled with metoprolol.) Recently seen: Not recently seen Review of Systems Constitutional: denies: Fever Nose: denies: Rhinorrhea / runny nose, Congestion Throat: denies: Sore throat Cardiac: reports: Palpitations. denies: Pedal edema, Calf pain Respiratory: denies: Cough GI: denies: Abdominal Pain, Vomiting, Diarrhea Neurologic: reports: Focal weakness (s/p cva with ongoing weakness left side.) PD PAST MEDICAL HISTORY - Past Medical History Cardiovascular: Atrial fibrillation Respiratory: None Neuro: CVA, Other (no prior seizures. 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 Cardiovascular: Other - Present Medications Home Medications: Ambulatory Orders Medication Instructions Recorded Confirmed Ajanta 10 mg PO DAILY 08/22/21 Atorvastatin [Lipitor] 20 mg PO DAILY 08/22/21 08/22/21 Metoprolol Succinate [Kapspargo 100 mg PO DAILY 08/22/21 08/22/21 Sprinkle] Omeprazole [PriLOSEC] 20 mg PO DAILY 08/22/21 08/22/21 Levetiracetam [Keppra] 500 mg PO BID 30 Days #60 tablet 02/12/22 Ondansetron Odt [Zofran] 4 mg TL Q6H PRN #10 tablet 02/12/22 Oxycodone HCl [Roxicodone] 2.5 - 5 mg PO Q6H PRN #10 tablet 02/12/22 - Allergies Allergies/Adverse Reactions: Allergies Allergy/AdvReac Type Severity Reaction Status Date / Time No Known Drug Allergies Allergy Verified 10/16/22 13:21 - Social History Does the pt smoke?: No Smoking Status: Never smoker Does the pt drink ETOH?: No Does the pt have substance abuse?: No - Immunizations Immunizations are current?: Yes PD ED PE NORMAL - Vitals Vital signs reviewed: Yes (markedly tachycardic initially but rate decreases to about 170 just resting) - General General: Well developed/nourished, Other (she opens eyes on arrival and answers questions simply. ) - HEENT HEENT: Atraumatic - Neck Neck: Supple, no meningeal sign, No adenopathy - Cardiac Cardiac: No: RRR (tachycardic and irregular. monitor showing atrial fib/ rapid. ) - Respiratory Respiratory: Clear bilaterally - Abdomen Abdomen: Non tender, Non distended - Derm Derm: Normal color, Warm and dry - Extremities Extremities: No edema, No calf tenderness / cord - Neuro Neuro: Alert and oriented X 3, Other (left sided weakness, baseline from CVA per pateint. ) Results - Vitals Vitals: Vital Signs - 24 hr 10/16/22 10/16/22 10/16/22 13:18 13:51 14:21 Temperature 36.5 C Heart Rate 204 H 129 H 95 Respiratory 18 21 15 Rate Blood Pressure 150/125 H 121/104 H 97/65 O2 Saturation 95 94 94 10/16/22 10/16/22 10/16/22 14:30 15:30 16:00 Temperature Heart Rate 98 92 98 Respiratory 16 21 Rate Blood Pressure 111/68 102/70 O2 Saturation 96 97 10/16/22 16:30 Temperature Heart Rate 109 H Respiratory 18 Rate Blood Pressure 118/73 O2 Saturation 98 Oxygen O2 Source Room air - EKG (time done) 13:16 EKG releavant findings:: EKG personally interpreted by author of this note. Relevant findings are: Rate: Rate (enter#) Rhythm: Atrial fibrillation Ischemia: ST depression (presume rate related ischemia. ). No: ST elevation c/w ischemia - Labs Labs: Laboratory Tests 10/16/22 10/16/22 10/16/22 13:15 13:15 13:15 WBC 11.8 H RBC 4.83 Hgb 14.4 Hct 43.7 MCV 90.5 MCH 29.8 MCHC 33.0 RDW 12.4 Plt Count 373 MPV 9.3 Neut # (Auto) 8.3 H Lymph # (Auto) 3.0 [place] # (Auto) 0.4 Eos # (Auto) 0.1 Baso # (Auto) 0.1 Absolute Nucleated RBC 0.00 Nucleated RBC % 0.0 Sodium 137 Potassium 3.1 L Chloride 104 Carbon Dioxide 15 L Anion Gap 18.0 H BUN 13 Creatinine 0.9 Estimated GFR (MDRD) 61 L Glucose 250 H Calcium 9.3 Magnesium 2.4 Total Bilirubin 0.9 AST 31 ALT 30 Alkaline Phosphatase 58 B-Natriuretic Peptide 207 H Total Protein 7.5 Albumin 4.5 Globulin 3.0 Albumin/Globulin Ratio 1.5 Lipase 41 - Rads (name of study) chest xray Relevant Findings:: Prelim report reviewed (bilateral vascular congestion concerning for CHF. ), See rad report head CT Relevant Findings:: Prelim report reviewed (no ICH. No acute findings. Prior CVA noted. ), See rad report PD Medical Decision Making - ED course Complexity details: considered differential (had seizures several without apparent illness/trigger. Has stopped seizing on arrival to ER. Is in rapid atrial fib. Presume responsive to the seizure. History of atrial fib. ), d/w patient, d/w family () ED course: given versed enroute and not seizing now. has rapid atrial fib and given metoprolol IV with slowling to 140 then 120. DIltiazem dose then given and rate now under 100. Patient is taliing to clearly and at baseline. Patient and greatly prefer discharging home since doing so well at this time. Head CT done since on DOAC and had seizures. No obvious illness. Consider hydration level possible issue. states patient missed this AM dose of Keppra, but only a single dose. Given extra dose of Keppra IV here. She is doing well here now. Departure - Departure Disposition: 01 Home, Self Care Clinical Impression: Atrial fibrillation with rapid ventricular response, Recurrent seizures, Sequelae, post-stroke, Anticoagulant long-term use Condition: Stable Record reviewed to determine appropriate education?: Yes Follow-Up: CHERELLE ALEXANDRA I [Primary Care Provider] - Comments: Its unclear the cause or trigger for your recurrent seizure today. You also had an episode of atrial fibrillation with fast heart rate. I am inclined to think the seizure provoked the atrial fibrillation to go fast as it did come down to more slow with just a simple extra dose of medications. I would continue with your usual metoprolol and Keppra this evening as well even though you get extra doses of both here. You appear back to your baseline at this time according to you and your . Your heart rate is rate controlled now on around [address] scan does not show any signs of bleeding or acute abnormalities. It does show the old prior stroke of course. Your basic blood tests are normal with the exception of a mildly low potassium. You could add a extra potassium supplement or just good potassium rich foods over the next several days. Stay well-hydrated and continue usual medications. Follow-up with your primary care or contact your neurologist if you have further seizure episodes. Follow-up with your primary or return to the ER if it feels like your heart rate goes too fast again despite your usual medicines. At this point it seems reasonable and safe for you to discharge home. Return if needed. Discharge Date/Time: 10/16/22 17:15
[2022-10-16 13:32] LABS: BASOPHILS # (AUTO) 0.1 10^3/uL (0.0-0.1); BASOPHILS % (AUTO) 0.5 %; EOSINOPHILS # (AUTO) 0.1 10^3/uL (0.0-0.7); EOSINOPHILS % (AUTO) 0.4 %; HCT - HEMATOCRIT 43.7 % (37.0-47.0); HGB - HEMOGLOBIN 14.4 g/dL (12.0-16.0); LYMPHOCYTES % (AUTO) 25.1 %; MEAN CORPUSCULAR HEMOGLOBIN 29.8 pg (27.0-31.0); MEAN CORPUSCULAR VOLUME 90.5 fL (81.0-99.0); MEAN PLATELET VOLUME 9.3 fL (7.9-10.8); MONOCYTES # (AUTO) 0.4 10^3/uL (0.0-1.0); MONOCYTES % (AUTO) 3.5 %; NEUTROPHILS # (AUTO) 8.3 10^3/uL (1.5-6.6); PLT - PLATELET COUNT 373 10^3/uL (130-450); RED BLOOD COUNT 4.83 10^6/uL (4.20-5.40); RED CELL DISTRIBUTION WIDTH 12.4 % (12.0-15.0); WHITE BLOOD COUNT 11.8 x10^3/uL (4.8-10.8)
--- NOTE | 2022-10-16 13:43 | XRAY Report ---
PROCEDURE: Chest 1 View X-Ray INDICATIONS: chest pain TECHNIQUE: One view of the chest was acquired. COMPARISON: None. FINDINGS: Surgical changes and devices: Post median sternotomy. Lungs and pleura: No pleural effusions or pneumothorax. Diffuse prominent pulmonary markings. Mediastinum: Mediastinal contours appear normal. Aortic arch at the prostatic calcifications. Heart size is prominent. Bones and chest wall: No suspicious bony lesions. Overlying soft tissues appear unremarkable. IMPRESSION: Diffuse prominent pulmonary markings. This is concerning for mild pulmonary edema/CHF. Reviewed by: Darshan Person MD on 10/16/2022 1:42 PM PDT Approved by: Darshan Person MD on 10/16/2022 1:42 PM PDT Station ID: [id number]
[2022-10-16] MEDS ORDERED: levETIRAcetam INJ 1,000 MG in SODIUM CHLORIDE 0.9% 100ML 100 ML IV STA ×2 (14:09→14:16)
[2022-10-16] MEDS ORDERED: diltiaZEM INJ 5 MG/ML VIAL IVP STA (14:19)
[2022-10-16 14:30] LABS: ALBUMIN 4.5 g/dL (3.2-5.5); ALBUMIN/GLOBULIN RATIO 1.5 (1.0-2.2); BILIRUBIN,TOTAL 0.9 mg/dL (0.2-1.0); CALCIUM 9.3 mg/dL (8.5-10.3); CREATININE 0.9 mg/dL (0.4-1.0); MAGNESIUM 2.4 mg/dL (1.7-2.8); POTASSIUM 3.1 mmol/L (3.5-5.0); TOTAL PROTEIN 7.5 g/dL (6.7-8.2)
[2022-10-16] MEDS ORDERED: ACETAMINOPHEN 325 MG TABLET PO STA (15:13)
[2022-10-16] MEDS ORDERED: LIDOCAINE 1%-EPI 1:100000 20 ML MDV SUBQ STA (15:43)
--- NOTE | 2022-10-16 15:44 | CT Report ---
PROCEDURE: HEAD WO INDICATIONS: repetitive seizures TECHNIQUE: Noncontrast 4.5 mm thick angled axial sections acquired from the foramen magnum to the vertex. For r adiation dose reduction, the following was used: automated exposure control, adjustment of mA and/or kV according to patient size. COMPARISON: None. FINDINGS: Image quality: Suboptimal due to motion artifact. CSF spaces: Basal cisterns are patent. No extra-axial fluid collections. Ventricles are normal in size and shape, with exception of ex vacuo dilation of the right lateral ventricle. Brain: No midline shift. No intracranial masses or hemorrhage. Montes-white matter interface is norm al. Stable in cephalization of the right MCA territory. Skull and face: Calvarium and visualized facial bones are intact, without suspicious lesions. Sinuses: Visualized sinuses and mastoids are clear. IMPRESSION: Suboptimal evaluation due to motion artifact. No acute intracranial process. Prior large right MCA territory infarct. Reviewed by: Janusz Winter on 10/16/2022 3:43 PM PDT Approved by: Janusz Winter on 10/16/2022 3:43 PM PDT Station ID: [id number]
[2022-10-16] MEDS ORDERED: POTASSIUM BICARB 25 MEQ TABLET PO STA (15:50)
[2022-10-16 16:51] VITALS: BP 118/73
== END 2022-10-16 17:15 | disposition home or self-care (01) ==
LOC: ED 13:11
DX: G40.909 Epilepsy, unspecified, not intractable, without status epilepticus (principal); E87.6 Hypokalemia; I48.91 Unspecified atrial fibrillation; T42.6X6A Underdosing of other antiepileptic and sedative-hypnotic drugs, initial encounter; Z79.01 Long term (current) use of anticoagulants; I69.30 Unspecified sequelae of cerebral infarction
CPT/HCPCS: 36415; 70450; 71045; 80053; 80177; 83690; 83735; 83880; 85025; 93005; 96365; 96375; 99284; A9270

== ENCOUNTER 2022-10-24 11:07 | Outpatient (CLI) | payer MEDICARE ==
[2022-10-24 14:44] LABS: BASOPHILS # (AUTO) 0.1 10^3/uL (0.0-0.1); BASOPHILS % (AUTO) 0.5 %; EOSINOPHILS # (AUTO) 0.1 10^3/uL (0.0-0.7); EOSINOPHILS % (AUTO) 1.2 %; HCT - HEMATOCRIT 43.2 % (37.0-47.0); LYMPHOCYTES # (AUTO) 2.3 10^3/uL (1.5-3.5); LYMPHOCYTES % (AUTO) 23.8 %; MEAN CORPUSCULAR HEMOGLOBIN 29.7 pg (27.0-31.0); MEAN CORPUSCULAR HGB CONC 32.4 g/dL (32.0-36.0); MEAN CORPUSCULAR VOLUME 91.7 fL (81.0-99.0); MONOCYTES # (AUTO) 0.8 10^3/uL (0.0-1.0); MONOCYTES % (AUTO) 8.2 %; NEUTROPHILS # (AUTO) 6.4 10^3/uL (1.5-6.6); PLT - PLATELET COUNT 358 10^3/uL (130-450); RED BLOOD COUNT 4.71 10^6/uL (4.20-5.40); RED CELL DISTRIBUTION WIDTH 12.6 % (12.0-15.0); WHITE BLOOD COUNT 9.7 x10^3/uL (4.8-10.8)
[2022-10-24 15:41] LABS: THYROID STIMULATING HORMONE 1.27 uIU/mL (0.34-5.60)
[2022-10-24 15:59] LABS: ALBUMIN 4.3 g/dL (3.2-5.5); ALBUMIN/GLOBULIN RATIO 1.3 (1.0-2.2); BILIRUBIN,TOTAL 1.1 mg/dL (0.2-1.0); CALCIUM 9.2 mg/dL (8.5-10.3); CREATININE 0.5 mg/dL (0.4-1.0); POTASSIUM 3.7 mmol/L (3.5-5.0); TOTAL PROTEIN 7.5 g/dL (6.7-8.2)
== END 2022-10-24 11:08 | disposition home or self-care (01) ==
LOC: LAB.S 11:07
PROVIDERS: ATTEND Student in an Organized Health Care Education/Training Program
DX: Z87.898 Personal history of other specified conditions (principal)
CPT/HCPCS: 36415; 80053; 82607; 84443; 85025

== ENCOUNTER 2023-03-17 09:39 | Emergency (ER) | payer MEDICARE ==
[2023-03-17 09:59] VITALS: BP 146/99; O2SAT 100
--- NOTE | 2023-03-17 10:51 | XRAY Report ---
PROCEDURE: Hip w/Pelvis 2-3V RT INDICATIONS: pain s/p seizure TECHNIQUE: 2 view(s) of the hip were acquired. COMPARISON: None FINDINGS: Bones: No fractures or dislocations. No suspicious bony lesions. The visualized pelvic ring appear s intact. Soft tissues: No suspicious soft tissue calcifications or masses. IMPRESSION: Unremarkable hip radiographs. No fracture Reviewed by: Juliano Martínez MD on 03/17/2023 9:50 AM AKDT Approved by: Juliano Martínez MD on 03/17/2023 9:50 AM AKDT Station ID: [id number]
[2023-03-17] MEDS ORDERED: oxyCODONE 5 MG TABLET PO STA (11:00)
--- NOTE | 2023-03-17 11:08 | ED Physician Documentation ---
History of Present Illness - Stated complaint Stated Complaint: SZ - Chief complaint Chief Complaint: Neuro - History obtained from History obtained from: Patient, Family - History of Present Illness Timing: How many days ago (2) Pain level max: 6 Pain level now: 6 - Additonal information Additional information: 73 year old female with a known seizure disorder presents with R lower back pain s/p a seizure 2 days ago. Similar pain over the past few weeks after her last seizure, but worseded since the seizure 2 days ago. No back pain. No hip pain. No difficulty walking. No numbness or tingling. No falls. No head injury. No headache. No focal neurological deficits. Review of Systems Constitutional: denies: Fever, Chills GI: denies: Nausea, Vomiting, Diarrhea Skin: denies: Rash Musculoskeletal: denies: Neck pain Neurologic: reports: Seizure. 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 Cardiovascular: Other - Present Medications Home Medications: Ambulatory Orders Medication Instructions Recorded Confirmed Ajanta 10 mg PO DAILY 08/22/21 03/17/23 Atorvastatin [Lipitor] 20 mg PO DAILY 08/22/21 03/17/23 Metoprolol Succinate [Kapspargo 100 mg PO DAILY 08/22/21 03/17/23 Sprinkle] Omeprazole [PriLOSEC] 20 mg PO DAILY 08/22/21 03/17/23 Levetiracetam [Keppra] 500 mg PO BID 30 Days #60 tablet 02/12/22 03/17/23 Ondansetron Odt [Zofran] 4 mg TL Q6H PRN #10 tablet 02/12/22 Oxycodone HCl [Roxicodone] 2.5 - 5 mg PO Q6H PRN #10 tablet 02/12/22 Apixaban [Eliquis] 5 mg PO DAILY 03/17/23 03/17/23 HYDROcod/ACETAM 5/325 [[place] 5/325] 1 - 2 ea PO Q6H PRN #14 tablet 03/17/23 - Allergies Allergies/Adverse Reactions: Allergies Allergy/AdvReac Type Severity Reaction Status Date / Time No Known Drug Allergies Allergy Verified 10/16/22 13:21 - Social History Does the pt smoke?: No Smoking Status: Never smoker Does the pt drink ETOH?: No Does the pt have substance abuse?: No - Immunizations Immunizations are current?: Yes PD ED PE NORMAL - Vitals Vital signs reviewed: Yes - General General: Alert and oriented X 3, No acute distress - HEENT HEENT: Atraumatic, PERRL, EOMI, Moist mucous membranes - Neck Neck: Supple, no meningeal sign, No bony TTP - Cardiac Cardiac: RRR, Strong equal pulses - Respiratory Respiratory: No respiratory distress, Clear bilaterally - Abdomen Abdomen: Soft, Non tender, Non distended - Back Back: No CVA TTP, No spinal TTP, Other (No midline tenderness to palpation or percussion. No step-off or deformity. Mild paraspinal spasm right low lumbar. 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, No motor deficit, No sensory deficit, Normal speech Eye Opening: Spontaneous Motor: Obeys Commands Verbal: Oriented GCS Score: 15 - Psych Psych: Normal mood, Normal affect Results - Vitals Vitals: Vital Signs - 24 hr 03/17/23 09:50 Temperature 36.6 C Heart Rate 90 Respiratory 16 Rate Blood Pressure 146/99 H O2 Saturation 100 Oxygen O2 Source Room air - Rads (name of study) R hip xray Relevant Findings:: Final report received, See rad report PD Medical Decision Making - ED course Complexity details: reviewed results, re-evaluated patient, considered differential, d/w patient, d/w family ED course: Patient with what appears to be a lumbar strain. No acute findings on x-ray of the right hip. Will prescribe pain medication for home and have her follow-up with her PCP for further care. No midline back pain. No indication for imaging of the spine. No evidence of cauda equina, epidural abscess or fracture. Patient and family counseled regarding signs and symptoms for which I believe and urgent re-evaluation would be necessary. Patient with good understanding of and agreement to plan and is comfortable going home at this time This document was made in part using voice recognition software. While efforts are made to proofread this document, sound alike and grammatical errors may occur. Departure - Departure Disposition: 01 Home, Self Care Clinical Impression: Low back strain Qualifiers: Encounter type: initial encounter Qualified Code(s): S39.012A - Strain of muscle, fascia and tendon of lower back, initial encounter Condition: Good Instructions: ED Sprain Strain Lumbar Follow-Up: CHERELLE ALEXANDRA I [Primary Care Provider] - Within 1 week Prescriptions: HYDROcod/ACETAM 5/325 [[place] 5/325] 1 - 2 ea PO Q6H PRN #14 tablet PRN Reason: Pain Comments: Your prescriptions were sent to [facility] in [place]. Please follow-up with her doctor for further care. Please return if she worsens. There are no acute findings on her x-ray today. This appears to be a muscular injury. If you are going to utilize a cane, it should be used in the left hand. Otherwise I would recommend using the walker instead. I am prescribing a short course of narcotic pain medication for you. These are potentially dangerous and addictive medications that should be used carefully. These medications may constipate you. Take an jhcl-jls-eobgcin stool softener (docusate) twice daily with plenty of water while taking these medications. If you go 24 hours without a bowel movement, take epjl-btd-yrniddq miralax, per package instructions. Do not drink or drive while taking these medications. If you received narcotic or sedating medications while in the emergency department, do not drive for 24 hours. Store this medication in a safe, secure place and out of reach of children. It is a violation of federal law to give or sell this medication to another person or to use in a manner other than prescribed. The ED will not refill narcotic prescriptions, including prescriptions lost or stolen. To dispose of unwanted medications: 1. [facility] at [address] in [place] has a medication drop box. They accept prescription medications (in pill form) Friday through Friday 9:00 a.m. to 5:00 p.m. 2. The [facility] [employer] accepts prescription medications (in pill form only) for disposal year round. Call for more information. 3. Contact the [facility] for the next [facility] sponsored prescription drug collection event. , [phone], or [phone]; Forms: PCP List Discharge Date/Time: 03/17/23 11:16
== END 2023-03-17 11:16 | disposition home or self-care (01) ==
LOC: ED 09:39
DX: S39.012A Strain of muscle, fascia and tendon of lower back, initial encounter (principal); X58.XXXA Exposure to other specified factors, initial encounter; I48.91 Unspecified atrial fibrillation
CPT/HCPCS: 73502; 99283; 99284; A9270

== ENCOUNTER 2023-05-06 10:22 | Emergency (ER) | payer MEDICARE ==
--- NOTE | 2023-05-06 10:50 | ED Physician Documentation ---
PD HPI FOCAL NEURO - Stated complaint Stated Complaint: LT ARM WEAK/TINGLING - Chief complaint Chief Complaint: Neuro - History obtained from History obtained from: Patient, Family - Additional information Additional information: Patient is a 73-year-old female with a history of atrial fibrillation, seizure disorder, prior stroke presenting for evaluation of worsening left-sided weakness. Patient had a right MCA stroke in August 2021 at which time she received tPA. She was transferred but ultimately did not undergo a thrombectomy. At that time she did have a history of A-fib but was only on as pirin. She has since been on Eliquis. She has also developed a seizure disorder is on Keppra. This morning she woke up at her usual self and was sitting on the couch. At 6:45 in the morning she started feeling numbness and tingling in the left arm and realized it was weaker than it usually is. She reports having a headache last night but not this morning. She also reports increased weakness to the left leg. She does have some baseline weakness from her prior stroke but states that today it is much worse than normal where she is not able to use the left hand.She denies trouble with speaking or swallowing.Her last seizure was in July per her . 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 Cardiovascular: Other - Present Medications Home Medications: Ambulatory Orders Medication Instructions Recorded Confirmed Atorvastatin [Lipitor] 80 mg PO DAILY 08/22/21 05/06/23 Metoprolol Succinate [Kapspargo 50 mg PO DAILY 08/22/21 05/06/23 Sprinkle] Levetiracetam [Keppra] 500 mg PO BID 30 Days #60 tablet 02/12/22 05/06/23 Apixaban [Eliquis] 5 mg PO BID 03/17/23 05/06/23 Calcitonin [Fortical] 1 sprays JOHN DAILY 05/06/23 05/06/23 Gabapentin [Neurontin] 100 mg PO TID 05/06/23 05/06/23 HYDROcod/ACETAM 5/325 [[place] 5/325] 1 ea PO BID 05/06/23 05/06/23 Tizanidine HCl [Zanaflex] 2 mg PO TID PRN 05/06/23 05/06/23 Zolpidem [Ambien] 10 mg PO HS 05/06/23 05/06/23 - Allergies Allergies/Adverse Reactions: Allergies Allergy/AdvReac Type Severity Reaction Status Date / Time No Known Drug Allergies Allergy Verified 05/06/23 10:39 - Social History Does the pt smoke?: No Smoking Status: Never smoker Does the pt drink ETOH?: No Does the pt have substance abuse?: No - Immunizations Immunizations are current?: Yes PD ED PE NORMAL - General General: Alert and oriented X 3, No acute distress, Well developed/nourished - HEENT HEENT: Atraumatic, PERRL, EOMI, Moist mucous membranes, Pharynx benign - Neck Neck: Supple, no meningeal sign - Cardiac Cardiac: Strong equal pulses, Other (Irregularly irregular, normal rate) - Respiratory Respiratory: No respiratory distress, Clear bilaterally - Abdomen Abdomen: Normal bowel sounds, Soft, Non tender, Non distended - Derm Derm: Warm and dry - Neuro Neuro: Alert and oriented X 3, timber killer 2-12 intact, Normal speech, Other (Left arm and left leg weakness, paresthesia to left arm, difficulty with mpfggb-zz-ahli with left arm, normal ynhq-oe-vhjt bilaterally) NIHSS - Time Time: 10:49 - Level of Consciousness Level of consciousness: (0) Alert, Keenly responsive LOC Questions: (0) Answers both Q's correct LOC Commands: (0) Performs both correctly - Gaze Best Gaze: (0) Normal - Visual Visual: (0) No loss - Facial Palsy Facial Palsy: (0) Normal, symmetrical movement - Motor Arms (both separate) Motor Arm (right): (0) No drift Motor Arm (left): (1) Drift - Motor Legs (both separate) Motor Leg (right): (0) No drift Motor Leg (left): (1) Drift - Limb Ataxia Limb Ataxia: (1) Present in 1 limb - Sensory Sensory: (1) Zffw-wf-debnkffi loss - Best Language Best Language: (0) No aphasia - Dysarthria Dysarthria: (0) Normal - Extinction and Inattention (formally neg Extinction and inattention: (0) No abnormality - Total Score/Results Total Score/Result: 4 Results - Vitals Vitals: Vital Signs - 24 hr 05/06/23 05/06/23 05/06/23 10:33 11:30 12:00 Temperature 36.6 C 36.5 C Heart Rate 102 H 97 90 Respiratory 18 15 16 Rate Blood Pressure 119/59 L 134/82 H 130/86 H O2 Saturation 93 99 100 05/06/23 05/06/23 05/06/23 12:30 13:00 13:30 Temperature Heart Rate 88 146 H 110 H Respiratory 22 20 22 Rate Blood Pressure 132/88 H 119/91 H 130/88 H O2 Saturation 100 100 97 05/06/23 05/06/23 14:00 14:30 Temperature 36.8 C Heart Rate 109 H 108 H Respiratory 17 16 Rate Blood Pressure 129/71 130/70 O2 Saturation 96 98 Oxygen O2 Source Room air - EKG (time done) 1058 EKG releavant findings:: EKG personally interpreted by author of this note. Relevant findings are: Rate 96, atrial fibrillation, no STEMI, motion artifact in lateral leads - Labs Labs: Laboratory Tests 05/06/23 05/06/23 05/06/23 10:54 10:54 10:54 WBC 6.4 RBC 4.61 Hgb 13.8 Hct 41.0 MCV 88.9 MCH 29.9 MCHC 33.7 RDW 12.6 Plt Count 319 MPV 9.0 Neut # (Auto) 3.7 Lymph # (Auto) 2.1 Centre # (Auto) 0.4 Eos # (Auto) 0.1 Baso # (Auto) 0.0 Absolute Nucleated RBC 0.00 Nucleated RBC % 0.0 PT 20.9 H INR 2.0 H Sodium 136 Potassium 3.5 Chloride 102 Carbon Dioxide 28 Anion Gap 6.0 BUN 14 Creatinine 0.4 L Estimated GFR (MDRD) 156 Glucose 110 H POC Whole Bld Glucose Calcium 9.4 Total Bilirubin 1.0 AST 14 ALT 13 Alkaline Phosphatase 57 Total Protein 6.2 L Albumin 4.2 Globulin 2.0 L Albumin/Globulin Ratio 2.1 Nasal Adenovirus (PCR) Nasal B. parapertussis DNA (PCR) Nasal Coronavir 229E PCR Nasal Coronavir HKU1 PCR Nasal Coronavir NL63 PCR Nasal Coronavir OC43 PCR Nasal Enterovir/Rhinovir PCR Nasal Influenza B PCR Nasal Influenza A PCR Nasal Parainfluen 1 PCR Nasal Parainfluen 2 PCR Nasal Parainfluen 3 PCR Nasal Parainfluen 4 PCR Nasal RSV (PCR) Nasal B.pertussis DNA PCR Nasal C.pneumoniae (PCR) John Human Metapneumo PCR Nasal M.pneumoniae (PCR) Nasal SARS-CoV-2 (PCR) 05/06/23 05/06/23 10:57 13:15 WBC RBC Hgb Hct MCV MCH MCHC RDW Plt Count MPV Neut # (Auto) Lymph # (Auto) Centre # (Auto) Eos # (Auto) Baso # (Auto) Absolute Nucleated RBC Nucleated RBC % PT INR Sodium Potassium Chloride Carbon Dioxide Anion Gap BUN Creatinine Estimated GFR (MDRD) Glucose POC Whole Bld Glucose 99 Calcium Total Bilirubin AST ALT Alkaline Phosphatase Total Protein Albumin Globulin Albumin/Globulin Ratio Nasal Adenovirus (PCR) NOT DETECTED Nasal B. parapertussis DNA (PCR) NOT DETECTED Nasal Coronavir 229E PCR NOT DETECTED Nasal Coronavir HKU1 PCR NOT DETECTED Nasal Coronavir NL63 PCR NOT DETECTED Nasal Coronavir OC43 PCR NOT DETECTED Nasal Enterovir/Rhinovir PCR NOT DETECTED Nasal Influenza B PCR NOT DETECTED Nasal Influenza A PCR NOT DETECTED Nasal Parainfluen 1 PCR NOT DETECTED Nasal Parainfluen 2 PCR NOT DETECTED Nasal Parainfluen 3 PCR NOT DETECTED Nasal Parainfluen 4 PCR NOT DETECTED Nasal RSV (PCR) NOT DETECTED Nasal B.pertussis DNA PCR NOT DETECTED Nasal C.pneumoniae (PCR) NOT DETECTED John Human Metapneumo PCR NOT DETECTED Nasal M.pneumoniae (PCR) NOT DETECTED Nasal SARS-CoV-2 (PCR) NOT DETECTED PD Medical Decision Making - ED course Complexity details: reviewed results, re-evaluated patient, d/w patient, d/w family, d/w property consultant ED course: Patient is a 73-year-old female with a history of A-fib on Eliquis, prior stroke with residual left-sided weakness, seizure disorder on Keppra 500 twice daily presenting for evaluation of worsening left arm and leg weakness since 645 this morning. Patient does have noticeable weakness to the left side which states is different than her baseline. Therefore code stroke was activated and patient was taken to CT for CT head and CT angio head and neck. Telestroke was also consulted. Patient is not a thrombolytic candidate due to being on Eliquis. There is no signs of intracranial hemorrhage on CT and no signs of a large vessel occlusion. While she was in the emergency department she started developing a twitching movement of her left arm that was concerning for a focal seizure and then she went into a full body tonic-clonic seizure. I again spoke with teleroke who recommended giving her an additional dose of IV Keppra and increasing her regular dose. Also recommends transfer for further monitoring. I have spoken with neurology and hospitalist at [facility] and patient has been accepted. After her seizure her heart rate did elevate which responded to a d ose of Cardizem. Labs including CBC, chemistries, respiratory swab were unrevealing. Urine analysis is pending. 1115 - D/[facility] - Patient is not a tPA candidate as she is on Eliquis. He will wait for the images and evaluate her. He agrees with plan for angios of the head/neck. 1249 - Patient started complaining of feeling nauseous and having tremors of the left arm. I came to evaluate the patient I am concerned that this movement is a focal seizure. I have asked for telestroke to evaluate this. Prior to their evaluation she went into a full tonic-clonic seizure lasting approximately 1 minute. I then spoke with Dr. Simmons with [facility] who recommends giving her 1500 mg of IV Keppra now and increasing her regular dose to thousand twice daily. He also recommends admitting the patient to a facility with neurology capabilities or ways to monitor for seizure activity. I explained that we are a critical access hospital and do not have neurology or EEG abilities and he Agrees patient should be transferred. 1321 - D/W [facility] who agrees with management thus far and will consult on patient once transferred. 1410 - Heart rate has improved after Cardizem. Patient is awake, speech is slightly slurred but improving. Still with some weakness to the left side. 1423 - Discussed with Dr. Webster, hospitalist at [facility] who accepts the patient in transfer. Departure - Departure Disposition: 02 Transfer Acute Care Hosp Clinical Impression: Stroke-like symptoms, Generalized seizure, Chronic atrial fibrillation, Anticoagulant long-term use Condition: Fair Forms: PCP List
[2023-05-06 10:58] LABS: BASOPHILS % (AUTO) 0.6 %; EOSINOPHILS # (AUTO) 0.1 10^3/uL (0.0-0.7); EOSINOPHILS % (AUTO) 1.7 %; HGB - HEMOGLOBIN 13.8 g/dL (12.0-16.0); LYMPHOCYTES # (AUTO) 2.1 10^3/uL (1.5-3.5); LYMPHOCYTES % (AUTO) 32.8 %; MEAN CORPUSCULAR HEMOGLOBIN 29.9 pg (27.0-31.0); MEAN CORPUSCULAR HGB CONC 33.7 g/dL (32.0-36.0); MEAN CORPUSCULAR VOLUME 88.9 fL (81.0-99.0); MONOCYTES # (AUTO) 0.4 10^3/uL (0.0-1.0); MONOCYTES % (AUTO) 6.9 %; NEUTROPHILS # (AUTO) 3.7 10^3/uL (1.5-6.6); NEUTROPHILS % (AUTO) 57.7 %; PLT - PLATELET COUNT 319 10^3/uL (130-450); RED BLOOD COUNT 4.61 10^6/uL (4.20-5.40); RED CELL DISTRIBUTION WIDTH 12.6 % (12.0-15.0); WHITE BLOOD COUNT 6.4 x10^3/uL (4.8-10.8)
[2023-05-06 11:07] LABS: PT - PROTHROMBIN TIME 20.9 secs (9.9-12.6)
[2023-05-06 11:15] LABS: ALBUMIN 4.2 g/dL (3.2-5.5); ALBUMIN/GLOBULIN RATIO 2.1 (1.0-2.2); CALCIUM 9.4 mg/dL (8.5-10.3); CREATININE 0.4 mg/dL (0.6-1.3); POTASSIUM 3.5 mmol/L (3.5-4.5); TOTAL PROTEIN 6.2 g/dL (6.4-8.9)
--- NOTE | 2023-05-06 11:39 | CT Report ---
PROCEDURE: Head W/O Stroke Protocol INDICATIONS: L sided weak/last well 645AM TECHNIQUE: Noncontrast 4.5 mm thick angled axial sections acquired from the foramen magnum to the vertex, with c oronal reformats. For radiation dose reduction, the following was used: automated exposure control, adjustment of mA and/or kV according to patient size. COMPARISON: 10/16/2022 FINDINGS: Image quality: Excellent. CSF spaces: Basal cisterns are patent. No extra-axial fluid collections. Ventricles are normal in size and shape. Brain: No midline shift. Prior infarction in the right MCA distribution is unchanged. No intracrania l masses or hemorrhage. Montes-white matter interface is normal. Skull and face: Calvarium and visualized facial bones are intact, without suspicious lesions. Sinuses: Visualized sinuses and mastoids are clear. IMPRESSION: 1. Prior infarction in the right MCA distribution. 2. No acute intracranial abnormality. 3. No intracranial hemorrhage. Findings were discussed with Dr. Blanca at 10:37 AM on 05/06/2023. This study fulfills neurological imaging criteria for inclusion or exclusion of acute stroke therapie s based on available published neurological imaging guidelines. Reviewed by: Jason Lockwood on 05/06/2023 10:38 AM [facility] Approved by: Jason Lockwood on 05/06/2023 10:38 AM [facility] Station ID: [id number]
--- NOTE | 2023-05-06 11:46 | CT Report ---
PROCEDURE: CT Angio Head W/WO INDICATIONS: L sided weak/last well 645AM CONTRAST: 80ml omni 300 TECHNIQUE: After the administration of intravenous contrast, 1 mm thick sections acquired through the [place] of Fu. Postcontrast 4.5 mm thick sections then re-acquired from the foramen magnum to the vertex. 3-dimensional ywvukrb-efzgcelly-zuqxowqyuo (MIP) and/or volume rendering reformats were acquired of [facility] central intracranial vasculature. For radiation dose reduction, the following was used: automate d exposure control, adjustment of mA and/or kV according to patient size. COMPARISON: 08/22/2021 FINDINGS: Image quality: Diagnostic. Anterior circulation: Intracranial internal carotid arteries are normal in size and flow. The flow within the paired anterior cerebral arteries is normal and symmetric. The flow within the middle cer ebral arteries is normal and symmetric. The anterior communicating artery is seen. No aneurysms are seen. Posterior circulation: Visualized portions of the vertebral arteries demonstrate normal caliber, and join to form a normal appearing basilar artery. Flow within the posterior cerebral arteries is norm al and symmetric. No aneurysms are seen. CSF spaces: Ventricles are normal in size and shape. Basal cisterns are patent. No extra-axial flu id collections. Brain: No midline shift. No intracranial bleeds or masses. Montes-white matter interface appears int act. Skull and face: Calvarium and facial bones appear intact, without suspicious lesions. Sinuses: Visualized sinuses and mastoids are clear. IMPRESSION: 1. Normal CTA of the head. Thrombus previously seen in the M1 segment of the right MCA on 08/22/2021 h as recanalized. 2. Normal CTA of the neck. Reviewed by: Jason Lockwood on 05/06/2023 10:44 AM [facility] Approved by: Jason Lockwood on 05/06/2023 10:44 AM [facility] Station ID: [id number]
--- NOTE | 2023-05-06 11:54 | CT Report ---
PROCEDURE: CT Angio Head/Neck INDICATIONS: L side weakness/last well 0645 CONTRAST: 80ml omni 300 TECHNIQUE: After the administration of intravenous contrast, 1 mm thick sections acquired through the [place] of Fu. Postcontrast 4.5 mm thick sections then re-acquired from the foramen magnum to the vertex. 3-dimensional rzrlpem-tzakutrwg-nfhvvgqymz (MIP) and/or volume rendering reformats were acquired of [facility] central intracranial vasculature. For radiation dose reduction, the following was used: automate d exposure control, adjustment of mA and/or kV according to patient size. COMPARISON: 08/22/2021 FINDINGS: Image quality: Diagnostic. Anterior circulation: Intracranial internal carotid arteries are normal in size and flow. The flow within the paired anterior cerebral arteries is normal and symmetric. The flow within the middle cer ebral arteries is normal and symmetric. The anterior communicating artery is seen. No aneurysms are seen. Posterior circulation: Visualized portions of the vertebral arteries demonstrate normal caliber, and join to form a normal appearing basilar artery. Flow within the posterior cerebral arteries is norm al and symmetric. No aneurysms are seen. CSF spaces: Ventricles are normal in size and shape. Basal cisterns are patent. No extra-axial flu id collections. Brain: No midline shift. No intracranial bleeds or masses. Montes-white matter interface appears int act. Skull and face: Calvarium and facial bones appear intact, without suspicious lesions. Sinuses: Visualized sinuses and mastoids are clear. IMPRESSION: 1. Normal CTA of the head. Thrombus previously seen in the M1 segment of the right MCA on 08/22/2021 h as recanalized. 2. Normal CTA of the neck. Reviewed by: Jason Lockwood on 05/06/2023 10:53 AM [facility] Approved by: Jason Lockwood on 05/06/2023 10:53 AM [facility] Station ID: [id number]
[2023-05-06] MEDS ORDERED: ONDANSETRON 4 MG/2 ML VIAL IVP STA (12:42)
[2023-05-06] MEDS ORDERED: levETIRAcetam 500 MG/5 ML VIAL IVP STA (12:50)
[2023-05-06] MEDS ORDERED: SODIUM CHLORIDE 0.9% 1,000 ML IV STA (12:57)
[2023-05-06] MEDS ORDERED: diltiaZEM INJ 5 MG/ML VIAL IVP ONE (13:05)
[2023-05-06] MEDS ORDERED: diltiaZEM INJ 5 MG/ML VIAL ONE (13:19)
[2023-05-06] MEDS ORDERED: iohexoL-300 100 ML VIAL IVP ONE (13:54)
[2023-05-06 14:18] LABS: B. PARAPERTUSSIS- RESP PCR PAN NOT DETECTED; B. PERTUSSIS- RESP PCR PANEL NOT DETECTED; C. PNEUMONIAE- RESP PCR PANEL NOT DETECTED; CORONAVIRUS 229E-RESP PCR NOT DETECTED; CORONAVIRUS HKU1-RESP PCR NOT DETECTED; CORONAVIRUS NL63-RESP PCR NOT DETECTED; CORONAVIRUS OC43-RESP PCR NOT DETECTED; HUMAN METAPNEUMOVIRUS NOT DETECTED; INFLUENZA A- RESP PCR PANEL NOT DETECTED; INFLUENZA B - RESP PCR PANEL NOT DETECTED; M. PNEUMONIAE- RESP PCR PANEL NOT DETECTED; PARAINFLUENZA VIRUS 1 NOT DETECTED; PARAINFLUENZA VIRUS 2 NOT DETECTED; PARAINFLUENZA VIRUS 3 NOT DETECTED; PARAINFLUENZA VIRUS 4 NOT DETECTED; RHINOVIRUS/ENTEROVIRUS NOT DETECTED; RSV- RESP PCR PANEL NOT DETECTED; SARS-CoV-2 -RESP PCR PANEL NOT DETECTED
[2023-05-06 14:38] VITALS: O2SAT 98
[2023-05-06] MEDS ORDERED: ONDANSETRON 4 MG/2 ML VIAL IVP PRN (14:57)
[2023-05-06] MEDS ORDERED: ACETAMINOPHEN 500 MG TABLET PO PRN (14:57)
[2023-05-06] MEDS ORDERED: ACETAMINOPHEN 500 MG TABLET PO STA (15:33)
--- NOTE | 2023-05-06 15:33 | ED Physician Documentation ---
ED Addendum - Addendum Addendum: 05/06/23 15:[address] Blanca at 3 PM shift change. I am notified by our health community support specialist that she has been accepted to [facility] for postseizure management. Seen and examined at the bedside. She would like some Tylenol which is ordered. She appears in no acute distress so I think ground transportation is appropriate. Disposition: transferred to [facility] Condition: Stable Diagnosis: 1. History of stroke 2. Seizure
[2023-05-06 16:30] VITALS: BP 112/75
[2023-05-06] MEDS ORDERED: levETIRAcetam INJ 1,000 MG in SODIUM CHLORIDE 0.9% 100ML 100 ML IV ONE (20:00)
[2023-05-06] MEDS ORDERED: levETIRAcetam INJ 1,000 MG in SODIUM CHLORIDE 0.9% 100ML 100 ML IV SCH (21:00)
[2023-05-06] MEDS ORDERED: ATORVASTATIN 40 MG TABLET PO SCH (21:00)
[2023-05-06] MEDS ORDERED: APIXABAN 5 MG TABLET PO SCH (21:00)
[2023-05-06] MEDS ORDERED: METOPROLOL SUCCINATE 50 MG TABLET PO SCH (21:00)
[2023-05-07] MEDS ORDERED: PANTOPRAZOLE 40 MG TABLET PO SCH (07:00)
== END 2023-05-06 16:33 | disposition short-term general hospital (02) ==
LOC: ED 10:22
DX: R29.898 Other symptoms and signs involving the musculoskeletal system (principal); G40.89 Other seizures; R00.0 Tachycardia, unspecified; I48.20 Chronic atrial fibrillation, unspecified; Z79.01 Long term (current) use of anticoagulants; Z86.73 Personal history of transient ischemic attack (TIA), and cerebral infarction without residual deficits
CPT/HCPCS: 36415; 70450; 70496; 70498; 80053; 85025; 85610; 87633; 93005; 96374; 96375; 99285; A9270; Q9967

== ENCOUNTER 2023-05-06 16:27 | Outpatient (CLI) | payer MEDICARE | END 2023-05-06 16:28 | disposition short-term general hospital (02) | LOC: EMS 16:27 | PROVIDERS: ATTEND Emergency Medicine | DX: R56.9 Unspecified convulsions (principal) | CPT/HCPCS: A0425; A0428 ==

== ENCOUNTER 2023-09-10 13:27 | Outpatient (CLI) | payer MEDICARE ==
[2023-09-10 20:00] LABS: BILIRUBIN,URINE SMALL (NEGATIVE); GLUCOSE, URINE (UA) NEGATIVE (NEGATIVE); KETONES,URINE (UA) TRACE mg/dL (NEGATIVE); LEUKOCYTE ESTERASE, URINE MODERATE (NEGATIVE); NITRITE,URINE POSITIVE (NEGATIVE); OCCULT BLOOD,URINE NEGATIVE (NEGATIVE); PH,URINE 6.5 PH (5.0-7.5); PROTEIN,URINE TRACE mg/dL (NEGATIVE); UROBILINOGEN,URINE 0.2 (NORMAL) E.U./dL (NORMAL)
[2023-09-10 20:01] LABS: CLARITY,URINE CLOUDY (CLEAR)
[2023-09-10 20:17] LABS: WBC,URINE >25 /HPF (0-5)
[2023-09-10 20:21] LABS: BACTERIA,URINE Moderate /HPF (None Seen); RBC,URINE 0-5 /HPF (0-5); SQUAMOUS EPITHELIAL CELL,UR FEW Squamous (<= Few)
== END 2023-09-10 13:28 | disposition home or self-care (01) ==
LOC: LAB.S 13:27
PROVIDERS: ATTEND Student in an Organized Health Care Education/Training Program
DX: R35.0 Frequency of micturition (principal)
CPT/HCPCS: 81001; 87086

== ENCOUNTER 2024-05-31 19:17 | Observation (INO) ==
--- NOTE | 2024-05-31 19:51 | ED Physician Documentation ---
PD HPI FOCAL NEURO Stated complaint Stated Complaint: LT SIDE NUMBNESS Chief complaint Chief Complaint: Neuro History obtained from History obtained from: Patient and Family Additional information Additional information: She had a stroke with left-sided deficits in August 2021. She was thrombolysed. She had the history of A-fib was not anticoagulated at the time. That stroke did leave her with some left-sided deficits but she was very functional, able to walk unassisted and she has been anticoagulated now. It also left her with a seizure disorder. For that she takes Keppra. She was seen by my partner aaron cespedes in the day after a seizure. CT imaging of the head was normal and she was in A-fib. She went home and was in her normal state of health walking. She sat on the couch and had another seizure. Since then she has had new left-sided deficits, she cannot walk or move her arm or leg. She does not complain of acute painful complaints except for mild headache and chronic back pain. She is here with the . All the new symptoms started around 3 PM. Meds/Allgy Home Medications Ambulatory Orders Medication Instructions Recorded Confirmed atorvastatin 20 mg tablet 80 mg PO DAILY 08/22/21 05/31/24 metoprolol succinate 100 mg 50 mg PO DAILY 08/22/21 05/31/24 capsule sprinkle, ext. release 24 hr (Kapspargo Sprinkle) levetiracetam 500 mg tablet 500 mg PO BID 30 days #60 tabs 02/12/22 05/31/24 (Keppra) apixaban 5 mg tablet (Eliquis) 5 mg PO BID 03/17/23 05/31/24 hydrocodone 5 mg-acetaminophen 325 1 ea PO BID 05/06/23 05/31/24 mg tablet tizanidine 2 mg capsule (Zanaflex) 2 mg PO TID PRN muscle spasms 05/06/23 05/31/24 Allergies Allergies Allergy/AdvReac Type Severity Reaction Status Date / Time No Known Drug Allergies Allergy Verified 05/31/24 19:48 [facility] Medical History Medical History (Updated 05/31/24 @ 22:27 by Mike Stone MD) CVA (cerebral vascular accident) Seizure Afib Social History Social History (Updated 05/31/24 @ 09:32 by Radha Gilbert, RN) Smoking Status: Never smoker Do you vape?: No Living arrangement: At home Living Condition: With spouse/s.o. and With family Relationship: Do you feel safe in your home environment?: Yes Suffered physical, verbal, emotional, or financial abuse?: No History of Abuse: No ETOH Use: None Substance Use: denies use POLST Patient has POLST: No Exam Constitutional normal general appearance and no apparent distress She is mildly confused. States it is May 2023. She is unable to walk unassisted due to left-sided weakness. Respiratory breath sounds equal bilaterally, normal respiratory effort and clear to auscultation bilaterally Cardiovascular Irregularly irregular Results Vitals Vitals: Vital Signs - 24 hr 05/31/24 11:32 05/31/24 13:12 05/31/24 19:34 Temperature 36.8 C Temperature Source Tympanic Pulse Rate 88 Respiratory Rate 16 Blood Pressure 95/66 O2 Saturation 98 O2 Source Room air Room air Pain Intensity 0 5 05/31/24 20:25 05/31/24 20:25 05/31/24 21:43 Temperature Temperature Source Pulse Rate 120 H 109 H Respiratory Rate 20 16 Blood Pressure 135/104 H 135/104 H O2 Saturation 97 97 O2 Source Room air Room air Pain Intensity 5 05/31/24 22:30 Temperature Temperature Source Pulse Rate 101 H Respiratory Rate 16 Blood Pressure 112/84 O2 Saturation 93 O2 Source Room air Pain Intensity Oxygen O2 Source Room air EKG (time done) 1945: EKG releavant findings:: EKG personally interpreted by author of this note. Relevant findings are: Atrial fibrillation with a rate of 105. Computer calling a PVC, I do not see it on the rhythm strip. Left axis deviation. No ST elevation or depression. Labs Labs: Laboratory Tests 05/31/24 20:00 WBC 11.3 H RBC 4.66 Hgb 14.0 Hct 42.4 MCV 91.0 MCH 30.0 MCHC 33.0 RDW 11.3 L Plt Count 319 MPV 9.0 Neut # (Auto) 9.8 H Lymph # (Auto) 1.0 L Zapata # (Auto) 0.4 Eos # (Auto) 0.0 Baso # (Auto) 0.0 Absolute Nucleated RBC 0.00 Nucleated RBC % 0.0 PT 19.4 H INR 1.8 H Sodium 137 Potassium 3.7 Chloride 104 Carbon Dioxide 24 Anion Gap 9.0 BUN 15 Creatinine 0.6 Estimated GFR (MDRD) 97 Glucose 134 H Calcium 9.8 Total Bilirubin 0.8 AST 23 ALT 32 Alkaline Phosphatase 76 Total Protein 7.4 Albumin 4.5 Globulin 2.9 Albumin/Globulin Ratio 1.6 Lipase 33 PD Medical Decision Making ED course ED course: She presents with acute strokelike symptoms but it was after a seizure at 3 PM. 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 She is contraindicated to thrombolysis given that she is on a DOAC. She went over for CT and I discussed the case with Dr. Ramsay, telestroke neur ologist while she was over there. He will review the images and get back to me.The telestroke neurologist called me back, he does not see an LVO and agrees there is no acute disease on her head CT (there is definitely encephalomalacia from her prior right MCA stroke). He does recommend loading her with 1 g of Keppra. Patient states her only Keppra was the morning dose this morning. He recommends increasing her dose to 750 twice daily. Ordered 1 g IV load,. On reevaluation at 8:30 PM she is moving her left side much better. That said she was still persistently symptomatic and could not walk unassisted. As such seems to make sense to put her in the hospital for observation, potential MRI tomorrow if not improved as we would expect. Telehealth consultation placed at 10:26 PM. Discharge Plan Discharge Patient Disposition: ED Place in Observation Condition: Stable Clinical Impression: Scott's paralysis (postepileptic) Prescriptions: No Action atorvastatin 20 MG tablet 80 mg PO DAILY Kapspargo Sprinkle 100 MG capsule,sprinkle,ER 24hr 50 mg PO DAILY levetiracetam [Keppra] 500 MG tablet 500 mg PO BID 30 Days Qty: 60 0RF Eliquis 5 MG tablet 5 mg PO BID hydrocodone-acetaminophen 1 TAB tablet 1 ea PO BID tizanidine [Zanaflex] 2 MG capsule 2 mg PO TID PRN (Reason: muscle spasms) Print Language: Setswana Stand Alone Forms: PCP List NIHSS Level of Consciousness Level of consciousness: (0) Alert, Keenly responsive LOC Questions: (1) Answers one Q correctly LOC Commands: (0) Performs both correctly Gaze Best Gaze: (1) Partial gaze palsy (She stops looking to the left shortly after the midline) Visual Visual: (0) No loss Facial Palsy Facial Palsy: (1) Minor paralysis (Left side) Motor Arms (both separate) Motor Arm (right): (0) No drift Motor Arm (left): (3) No effort against gravity Motor Legs (both separate) Motor Leg (right): (0) No drift Motor Leg (left): (3) No effort against gravity Limb Ataxia Limb Ataxia: (0) Absent Sensory Sensory: (1) Ngpy-dy-ifobovwg loss Best Language Best Language: (0) No aphasia Dysarthria Dysarthria: (0) Normal Extinction and Inattention (formally neg Extinction and inattention: (2) Profound qing-inattention or extinction to more than one modality Total Score/Results Total Score/Result: 12
[2024-05-31] MEDS ORDERED: iohexoL-300 100 ML VIAL ONE (19:55)
[2024-05-31 20:05] LABS: BASOPHILS % (AUTO) 0.4 %; HCT - HEMATOCRIT 42.4 % (37.0-47.0); LYMPHOCYTES % (AUTO) 8.7 %; MONOCYTES # (AUTO) 0.4 10^3/uL (0.0-1.0); MONOCYTES % (AUTO) 3.8 %; NEUTROPHILS # (AUTO) 9.8 10^3/uL (1.5-6.6); NEUTROPHILS % (AUTO) 86.7 %; PLT - PLATELET COUNT 319 10^3/uL (130-450); RED BLOOD COUNT 4.66 10^6/uL (4.20-5.40); RED CELL DISTRIBUTION WIDTH 11.3 % (12.0-15.0); WHITE BLOOD COUNT 11.3 x10^3/uL (4.8-10.8)
[2024-05-31 20:11] LABS: INR 1.8 (0.8-1.2); PT - PROTHROMBIN TIME 19.4 secs (9.9-12.6)
[2024-05-31 20:20] LABS: ALBUMIN 4.5 g/dL (3.2-5.5); ALBUMIN/GLOBULIN RATIO 1.6 (1.0-2.2); BILIRUBIN,TOTAL 0.8 mg/dL (0.2-1.0); CALCIUM 9.8 mg/dL (8.5-10.3); CREATININE 0.6 mg/dL (0.6-1.3); POTASSIUM 3.7 mmol/L (3.5-4.5); TOTAL PROTEIN 7.4 g/dL (6.4-8.9)
--- NOTE | 2024-05-31 20:44 | CT Report ---
PROCEDURE: CT Head W/O Stroke Protocol INDICATIONS: Neuro deficit, acute, stroke suspected TECHNIQUE: Noncontrast 4.5 mm thick angled axial sections acquired from the foramen magnum to the vertex, with c oronal reformats. For radiation dose reduction, the following was used: automated exposure control, adjustment of mA and/or kV according to patient size. COMPARISON: CTA 05/31/2024, 05/06/2023, 08/12/2021, CT head 05/06/2023 FINDINGS: Image quality: Excellent. The ventricular system and cortical sulci demonstrate atrophy, consistent for patient's stated age. There are areas of hypodensity in the periventricular and subcortical white matter. There is no acut e intra or extra-axial fluid collection. No acute hemorrhage, mass lesion or midline shift. Brainst em is unremarkable. Encephalomalacia from right MCA infarction. It is unchanged. Globes are symmetrical. Sinuses are aerated. Osseous structures are intact. IMPRESSION: 1. No acute intracranial process. 2. Moderate atrophy and chronic microvascular ischemic changes. This study fulfills neurological imaging criteria for inclusion or exclusion of acute stroke therapie s based on available published neurological imaging guidelines. Reviewed by: Ana Ferguson MD on 05/31/2024 8:43 PM PST Approved by: nAa Ferguson MD on 05/31/2024 8:43 PM PST Station ID: [id number]
--- NOTE | 2024-05-31 20:46 | CT Report ---
PROCEDURE: CT Angio Head/Neck INDICATIONS: cva sx TECHNIQUE: After the administration of intravenous contrast, 1 mm thick sections acquired from the aortic arch t hrough the [place] of Fu. 3-dimensional nbrocrb-bkigegwyz-zxnemizuon (MIP) and/or volume renderin g reformats were acquired of the central intracranial vasculature and neck separately. For radiation dose reduction, the following was used: automated exposure control, adjustment of mA and/or kV acco rding to patient size. CONTRAST: Omni 300 80ml COMPARISON: CTA head and neck 05/06/2023, 08/22/2021, CT head 05/31/2024 FINDINGS: Image quality: Diagnostic. HEAD CT: See separately dictated CT head report 05/31/[address] ANGIOGRAPHY: Anterior circulation: Intracranial internal carotid arteries are normal in size and flow. The flow within the paired anterior cerebral arteries is normal and symmetric. The flow within the middle cer ebral arteries is normal and symmetric. The anterior communicating artery is seen. No aneurysms are seen. Posterior circulation: Slight left vertebral artery dominance. Visualized portions of the vertebral arteries demonstrate normal caliber, and join to form a normal appearing basilar artery. Flow within the posterior cerebral arteries is normal and symmetric. No aneurysms are seen. NECK CT ANGIOGRAPHY: Carotid system: The great vessels demonstrate a conventional anatomy as they arise from the aortic a rch. The origins of the common carotid arteries appear patent. The common carotid arteries demonstr ate normal caliber and courses. The bifurcation regions are both widely patent. The internal caroti d arteries demonstrate normal calibers and courses. Posterior circulation: The origins of the vertebral arteries both appear widely patent. The more beltran perior extracranial portions of both vertebral arteries also demonstrate normal courses and calibers. They join to form a normal appearing basilar artery. Soft tissues: Visualized neck soft tissues demonstrate no suspicious abnormalities. Bones: No suspicious bony lesions. Visualized cervical spine appears normally aligned. IMPRESSION: No significant intracranial arterial abnormality is seen. No significant abnormality is seen within the arteries of the neck. The estimate of stenosis included in the report of the imaging study was calculated using the NASCET method Reviewed by: Ana Ferguson MD on 05/31/2024 8:45 PM PST Approved by: Ana Ferguson MD on 05/31/2024 8:45 PM PST Station ID: [id number]
[2024-05-31] MEDS: iohexoL-300 100 ML VIAL IVP ONE (21:06)
[2024-05-31] MEDS ORDERED: levETIRAcetam 500 MG/5 ML VIAL ONE (21:09)
[2024-05-31] MEDS: levETIRAcetam INJ 1,000 MG in SODIUM CHLORIDE 0.9% 100ML 100 ML IV STA (21:11)
[2024-05-31] MEDS: ACETAMINOPHEN 500 MG TABLET PO STA (21:43)
[2024-06-01] MEDS ORDERED: MELATONIN 3 MG TABLET PO PRN (00:11)
[2024-06-01] MEDS ORDERED: BENZONATATE 100 MG CAPSULE PO PRN (00:11)
--- NOTE | 2024-06-01 00:18 | HISTORY & PHYSICAL EXAMINATION ---
Chief Complaint Chief Complaint Chief Complaint: seizures, L arm weakness History of Present Illness History of Present Illness HPI Comment/Other: pt returns to ed again after being seen earlier for seizure episode with normal w/u. not with L sided paralysis and difficulty with ambulation. pt seen by tele-neurology and given 1 gm keppra load, with improvement in L arm mobility. no ams. pt on chronic keppra s/p cva in 2021 that left her with seizure d/o. pt denies chest pain, fevers, chills, sob, abd pain, dysuria, hematuria. no changes in lifestyle or habits. pt states she was watching tv with seizure episode occurred. Review of Systems Status of ROS: 10 or more systems reviewed and unremarkable except as noted in history and below [facility] Medical History Medical History (Updated 05/31/24 @ 22:27 by Mike Stone MD) CVA (cerebral vascular accident) Seizure Afib Social History Social History (Updated 05/31/24 @ 09:32 by Radha Wilburn RN) Smoking Status: Never smoker Do you vape?: No Living arrangement: At home Living Condition: With spouse/s.o. and With family Relationship: Do you feel safe in your home environment?: Yes Suffered physical, verbal, emotional, or financial abuse?: No History of Abuse: No ETOH Use: None Substance Use: denies use POLST Patient has POLST: No Meds/Allgy Home Medications Ambulatory Orders Medication Instructions Recorded Confirmed atorvastatin 20 mg tablet 80 mg PO DAILY 08/22/21 05/31/24 metoprolol succinate 100 mg 50 mg PO DAILY 08/22/21 05/31/24 capsule sprinkle, ext. release 24 hr (Kapspargo Sprinkle) levetiracetam 500 mg tablet 500 mg PO BID 30 days #60 tabs 02/12/22 05/31/24 (Keppra) apixaban 5 mg tablet (Eliquis) 5 mg PO BID 03/17/23 05/31/24 hydrocodone 5 mg-acetaminophen 325 1 ea PO BID 05/06/23 05/31/24 mg tablet tizanidine 2 mg capsule (Zanaflex) 2 mg PO TID PRN muscle spasms 05/06/23 05/31/24 Allergies Allergies Allergy/AdvReac Type Severity Reaction Status Date / Time No Known Drug Allergies Allergy Verified 05/31/24 19:48 Exam Constitutional normal general appearance and no apparent distress HENMT normocephalic, head/scalp atraumatic and hearing grossly normal bilaterally Eyes EOMs intact bilaterally Neck/C-Spine visual inspection normal Respiratory no use of accessory muscles full details per ed charting Cardiovascular full details per ed charting Gastrointestinal nondistended Extremities able to move L arm but slowly --> no acute trauma noted. chronic overall L sided deficits Neurology speech normal and GCS 15 Psychiatry oriented x3 Conclusion/Plan Problem List (1) Seizure: (2) Scott's paralysis (postepileptic): Plan pt with - - seizures with h/o seizures d/t cva in past s/p 1 gm keppra in ED increase po keppra dose to 750 mg bid per tele-neuro recommendations check mri, 2d echo - L arm weakness improved s/p treatment in ED initial motor deficit --> Scott's paralysis d/t seizure continue neuro checks pt eval and treat - chronic a-fib continue anticoagulation rate controlled f/u labs, neuro checks, imaging further orders per clinical course Lab Results 05/31/24 20:00 05/31/24 20:00
[2024-06-01 00:42] LABS: CHOL/HDL RATIO 2.2 (<4.4); CHOLESTEROL 124 mg/dL; HDL CHOLESTEROL 57 mg/dL; LDL CHOLESTEROL,CALCULATED 52 mg/dL; LDL/HDL RATIO 0.9 (<4.4); TRIGLYCERIDES 76 mg/dL; VLDL CHOLESTEROL 15 mg/dL
[2024-06-01 00:56] LABS: THYROID STIMULATING HORMONE 2.72 uIU/mL (0.34-5.60)
[2024-06-01] MEDS: MORPHINE 2 MG/ML CARPUJECT IVP PRN (02:15)
[2024-06-01 06:07] LABS: BASOPHILS # (AUTO) 0.1 10^3/uL (0.0-0.1); BASOPHILS % (AUTO) 0.6 %; EOSINOPHILS % (AUTO) 0.4 %; HGB - HEMOGLOBIN 12.6 g/dL (12.0-16.0); LYMPHOCYTES # (AUTO) 2.3 10^3/uL (1.5-3.5); LYMPHOCYTES % (AUTO) 24.2 %; MEAN CORPUSCULAR HGB CONC 33.2 g/dL (32.0-36.0); MEAN CORPUSCULAR VOLUME 90.5 fL (81.0-99.0); MONOCYTES % (AUTO) 10.3 %; NEUTROPHILS % (AUTO) 64.2 %; PLT - PLATELET COUNT 300 10^3/uL (130-450); RED CELL DISTRIBUTION WIDTH 11.4 % (12.0-15.0); WHITE BLOOD COUNT 9.4 x10^3/uL (4.8-10.8)
[2024-06-01 06:31] LABS: ALBUMIN 4.1 g/dL (3.2-5.5); ALBUMIN/GLOBULIN RATIO 1.6 (1.0-2.2); CREATININE 0.5 mg/dL (0.6-1.3); POTASSIUM 3.1 mmol/L (3.5-4.5); TOTAL PROTEIN 6.6 g/dL (6.4-8.9)
[2024-06-01] MEDS: POTASSIUM CHLORIDE 20 MEQ TABLET PO ONE (07:30)
[2024-06-01] MEDS: APIXABAN 5 MG TABLET PO SCH (08:08)
[2024-06-01] MEDS: MULTIVITAMIN W/MINERALS TABLET PO SCH (08:08)
[2024-06-01] MEDS: levETIRAcetam 250 MG TABLET PO SCH (08:08)
[2024-06-01] MEDS: ASCORBIC ACID 500 MG TABLET PO SCH (08:08)
[2024-06-01] MEDS: METOPROLOL SUCCINATE 50 MG TABLET PO SCH (08:08)
[2024-06-01] MEDS: ATORVASTATIN 40 MG TABLET PO SCH (08:08)
[2024-06-01] MEDS: ONDANSETRON 4 MG/2 ML VIAL IVP PRN (08:29)
[2024-06-01] MEDS: ACETAMINOPHEN 325 MG TABLET PO PRN (11:08)
[2024-06-01 12:14] LABS: ESTIMATED AVERAGE GLUCOSE 108 mg/dL (70-100); HEMOGLOBIN A1c% 5.4 % (4.27-6.07)
[2024-06-01 12:35] VITALS: TEMP 97.7; O2SAT 97
--- NOTE | 2024-06-01 12:47 | Discharge Summary ---
Discharge Summary Admit Date: 06/01/24 Discharge Date: 06/01/24 Discharging Provider: Todd Fu NP Primary Care Provider: Ludy Kirkland Code Status: Attempt Resuscitation DIAGNOSES Admission Diagnoses: Seizures Scott's paralysis Discharge Diagnoses with Status of Each Condition: Seizureschronic Scott's paralysisactive HPI History of Present Illness: pt returns to ed again after being seen earlier for seizure episode with normal w/u. not with L sided paralysis and difficulty with ambulation. pt seen by tele-neurology and given 1 gm keppra load, with improvement in L arm mobility. no ams. pt on chronic keppra s/p cva in 2021 that left her with seizure d/o. pt denies chest pain, fevers, chills, sob, abd pain, dysuria, hematuria. no changes in lifestyle or habits. pt states she was watching tv with seizure episode occurred. HOSPITAL COURSE Hospital Course: Patient was admitted to the hospital after receiving 1 g Keppra load. Teleneurology recommended increasing home dose to 750 mg p.o. twice daily. She underwent MRI which was without acute abnormality. She underwent echo, results pending. Her left arm weakness is improving. She was evaluated by physical therapy, who recommends home with home health ALLERGIES Allergies Allergy/AdvReac Type Severity Reaction Status Date / Time No Known Drug Allergies Allergy Verified 05/31/24 19:48 MEDICATIONS Ambulatory Orders Medication Instructions Recorded Confirmed apixaban 5 mg tablet (Eliquis) 5 mg PO BID 03/17/23 06/01/24 tizanidine 2 mg capsule (Zanaflex) 2 mg PO TID PRN muscle spasms 05/06/23 05/31/24 atorvastatin 80 mg tablet 80 mg PO QPM 06/01/24 06/01/24 bupropion HCl 150 mg 24 hr tablet, 150 mg PO DAILY 06/01/24 06/01/24 extended release levetiracetam 1,000 mg tablet 1,000 mg PO BID 06/01/24 06/01/24 metoprolol succinate 50 mg 50 mg PO DAILY 06/01/24 06/01/24 tablet,extended release 24 hr PHYSICAL EXAM AT DISCHARGE General Appearance: positive No acute distress and Alert Eyes Bilateral: positive Normal inspection ENT: positive ENT inspection nml Neck: positive Nml inspection Respiratory: positive Chest non-tender and No respiratory distress Cardiovascular: positive Regular rate & rhythm Peripheral Pulses: positive 2+ Abdomen: positive Non-tender Skin: positive Color nml Extremities: positive Non-tender Neurologic/Psychiatric: positive Oriented x3 and Other (Left-sided weakness) LABS 06/01/24 05:34 06/01/24 05:34 DIAGNOSTIC IMAGING Diagnostic Imaging Results: Final report reviewed Diagnostic Imaging Results Comments: MRI brain no acute abnormality FOLLOW UP Follow Up: With PCP within 2 weeks TIME SPENT Time Spent in Discharge (Minutes): 15 Discharge Plan Discharge Patient Disposition: Home, Self Care Condition: Stable Medically Cleared Date:: 06/01/24 Prescriptions: Continued Eliquis 5 MG tablet 5 mg PO BID tizanidine [Zanaflex] 2 MG capsule 2 mg PO TID PRN (Reason: muscle spasms) atorvastatin 80 mg tablet 80 mg PO QPM metoprolol succinate 50 mg tablet extended release 24 hr 50 mg PO DAILY bupropion HCl 150 mg tablet extended release 24 hr 150 mg PO DAILY levetiracetam 1,000 mg tablet 1,000 mg PO BID Diet: Regular Health Concerns: You are a 74-year-old female who has had a stroke before which left you with seizure disorder. You came into the hospital because you have had 2 different seizures. You were evaluated by teleneurology, and they recommended increasing your dose of Keppra after we rule out stroke. MRI was completed and found to be negative. Echocardiogram was performed and results are still pending. I am discharging you home with 1 change to your medication regimen: Keppra has been increased to 750 mg p.o. twice daily Please follow-up with your PCP within 1 to 2 weeks Care Plan Goals: Remain as active as possible, follow-up with PCP Assessment: Patient can perform ADLs with assistance. She is being discharged home with family. I have ordered home health PT/OT/social work. She is aware of her medication regimen and agrees. She is at risk for falls given her left-sided weakness. She is used to this left-sided weakness and has learned to live with it Plan of Treatment: Charge medication: Keppra increased to 750 mg p.o. twice daily Home health PT/OT/social work Follow-up with PCP within 2 weeks Print Language: [place] Citizen Patient Instructions: Seizures [place] Stand Alone Forms: PCP List
--- NOTE | 2024-06-01 12:59 | MRI Report ---
PROCEDURE: MRI Brain WO INDICATIONS: cva TECHNIQUE: Noncontrast axial T1 spin echo, axial T2 fast spin echo, sagittal and axial FLAIR, coronal T2 fast sp in echo, axial gradient echo, axial diffusion and ADC through the brain. COMPARISON: CT head without contrast exams from 05/31/2024 and 05/06/2023, CT head and neck angiogra m 05/31/2024 FINDINGS: Image quality: Excellent. CSF Spaces: Basal cisterns are patent. No extra-axial fluid collections. Ventricles are normal in size and shape, accounting for the prior infarct and parenchymal volume atrophy. Brain: No intracranial masses or hemorrhage. Montes/white matter interface is normal. Brainstem appe ars normal. Diffusion-weighted images demonstrate no acute ischemic insult . Encephalomalacia, glios is, and hemosiderin deposition (11/20; ) in the right frontal lobe corresponding to a prior right M2 division middle cerebral artery infarct. Normal intravascular flow voids are present. Skull and face: Calvarium has normal marrow signal. Orbits appear normal. Sinuses: Sinuses and mastoids are clear. IMPRESSION: 1.No acute stroke or intracranial mass effect. 2.Sequelae of a chronic right middle cerebral artery M2 division infarct. Reviewed by: Meet Chong MD on 06/01/2024 12:58 PM PST Approved by: Meet Chong MD on 06/01/2024 12:58 PM PST Station ID: [id number]
[2024-06-01 13:26] VITALS: BP 151/103
--- NOTE | 2024-06-01 13:27 | PT Plan of Care ---
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 H/o L sided weakness s/p CVA. Pt lives in [facility] with , uses a 4WW for limited household ambulation. Has shower seat and GBs. Nela baseline but helps as needed. Pt's dtr in room as well, lives in [place] but reports she helps with ADLs and visits as needed. Upon PT eval, pt presents with LUE inattention and mild weakness, LLE foot drop and mild to mod weakness. Able to transfer with CGA, amb in room x30' with FWW and CGA to minAx1. Step to gait pattern with occasional cueing for safety as pt leaves L foot outside of walker frame on occasion. Per pt and pt's family, her mobility is at or near baseline. Pt will benefit from PT in acute setting to improve safety and endurance. When medically clear, PT rec dc home with HHPT/OT/bathaide. Also recommend b/s commode. GOALS Improve supine to sit to:: Modified Independent Improve sit to stand to:: Modified Independent Improve sit to supine to:: Modified Independent Improve gait ability to:: SBA Advance Assistive Device to:: Front Wheeled Walker Increase distance walked to (in feet):: 50 PLAN Frequency: 1-2x/day Duration: Until goals are met DISCHARGE RECOMMENDATIONS Discharge Location: Previous Living Situation Support/Services Needed: Home Health P.T. Other Discharge Equipment: has walker Transport Needs at Discharge: Personal vehicle
== END 2024-06-01 15:00 | disposition home or self-care (01) ==
LOC: MS2 19:17 → ED 19:17 → MS2 06-01 00:27
PROVIDERS: ADMIT Student in an Organized Health Care Education/Training Program; ATTEND Student in an Organized Health Care Education/Training Program
DX: G40.509 Epileptic seizures related to external causes, not intractable, without status epilepticus; I69.398 Other sequelae of cerebral infarction; G83.84 Todd's paralysis (postepileptic); I48.20 Chronic atrial fibrillation, unspecified; Z79.01 Long term (current) use of anticoagulants